=== PATIENT | female | born 1985 | race Caucasian/White ===

== ENCOUNTER 2017-03-20 14:43 | Inpatient (IN) ==
--- NOTE | 2017-03-20 12:32 | OB/GYN Progress Note ---
Date of Encounter: 03/20/17 Time of Encounter: 12:23 - Assessment and Plan (1) Right flank pain Current Visit: Yes Status: Acute Patient has had right flank pain x 3 days. History of kidney stones Urinalysis UDS Retroperitoneal US complete to R/O Kidney stone Monitoring Pt reports pain is 8/10. Will treat pain with Dilaudid. IV fluid bolus. Zofran for nausea. (2) 28 weeks gestation of Current Visit: Yes Status: Acute Patient is 28w3d Subjective - Subjective Principal diagnosis: Right Flank Pain Interval history: Patient is a 31 year old female at 28w3d presents to L&D for right flank pain. She states that this has been ongoing for the past three days. States that it is sharp and constant. Reports that it radiates to the the front. States that she has been nauseated and vomiting. States she has tried tylenol with no relief of her pain. Patient denies any contractions, loss of fluid, or vaginal bleeding. States that she had had some thick clear vaginal discharge. Reports good movement. Denies complications with the . She is a patient of Dr. Guerreros. Patient states she had a history of kidney stones and that this feels just like the last time she had a stone. Feels like she has to urinate but only a small amount will come out. No fevers. She does complain of chills at this time. Antepartum ROS: new complaints (Right flank pain), movement normal, no loss of fluid, no vaginal bleeding, no contractions Objective - Vital Signs Vital Signs: Intake and Output 03/19/17 03/20/17 03/20/17 23:59 07:59 15:59 Other: Weight 69.9 kg Patient Weight 03/20/17 23:59 Weight 69.9 kg - Exam FHR: auscultation normal, category 1 FHR comments: FHT reassuring for GA Auscultation: bilateral: normal Abdomen: Present: normal appearance, soft, gravid Uterus: Present: normal. Absent: tenderness Comments: Positive for CVA tenderness on the right
[2017-03-20 12:42] LABS: Bilirubin,Urine Negative (Negative); Blood,Urine Moderate (Negative); Color,Urine Yellow (Yellow); Glucose,Urine (UA) Normal (Normal); Ketones,Urine Negative (Negative); Leukocyte Esterase,Urine Small (Negative); Nitrite,Urine Negative (Negative); PH,Urine 6.5 pH Units (5.0-8.0); Protein,Urine 30 mg/dL (Neg-Trace); Specific Gravity,Urine 1.027 (1.010-1.025); Urobilinogen,Urine Normal (Normal)
[2017-03-20 12:44] LABS: Bacteria,Urine Moderate per hpf (None-Few); Hyaline Casts,Urine None Seen per lpf (None-Few); RBC,Urine 15-30 per hpf (0-3); Squamous Epithelial Cell,Urine Moderate per lpf (None-Few); WBC,Urine 30-50 per hpf (0-3)
[2017-03-20 12:46] LABS: Clarity,Urine Slightly Hazy (Clear)
[2017-03-20 12:52] LABS: Amphetamine Screen,Urine Negative ng/mL (Cutoff=1000); Barbiturate Screen,Urine Negative ng/mL (Cutoff=200); Benzodiazepines Screen,Urine Negative ng/mL (Cutoff=200); Cannabinoid Screen,Urine Negative ng/mL (Cutoff = 50); Cocaine Screen,Urine Negative ng/mL (Cutoff= 300); Opiate Screen,Urine Negative ng/mL (Cutoff=300); Phencyclidine Screen,Urine Negative ng/mL (Cutoff=25)
[2017-03-20 14:19] LABS: Basophils % 0.2 %; Eosinophils % 0.4 %; Hematocrit 34.1 % (35.3-44.9); Hemoglobin 10.9 g/dL (11.5-15.4); Immature Granulocytes % 0.5 % (0-4); Lymphocytes # 1.3 K/mcL (0.6-4.6); Lymphocytes % 11.2 %; Mean Corpuscular Hemoglobin 29.9 pg (28.0-33.3); Mean Corpuscular Volume 93.4 fL (83.0-100.0); Mean Platelet Volume 10.8 fL (9.4-12.4); Monocytes # 0.5 K/mcL (0.0-1.3); Monocytes % 4.6 %; Neutrophils # 9.4 K/mcL (1.6-8.9); Platelet Count 351 K/mcL (140-400); Red Blood Count 3.65 M/mcL (3.82-4.97); Red Cell Distribution Width 13.4 % (11.5-14.5); Segmented Neutrophils % 83.1 %
[2017-03-20 14:28] LABS: BUN/Creatinine Ratio 9 (6-26); Blood Urea Nitrogen 6 mg/dL (7-20); Calcium 8.8 mg/dL (8.6-10.8); Carbon Dioxide 23 mEq/L (19-29); Chloride 105 mEq/L (98-109); Glucose 76 mg/dL (70-99); Osmolality,Calculated 280 (280-300); Potassium 3.6 mEq/L (3.5-4.5); Sodium 137 mEq/L (136-145); eGFR For African Americans > 60 (> 60); eGFR For Non-African Americans > 60 (> 60)
[~2017-03-20 14:43] MED LIST: *HR* HYDROmorphone 2 MG/ML SYRINGE IVP ONE; Ondansetron 4 MG/2 ML VIAL IVP PRN
[2017-03-20] MEDS: Ringers Solution, Lactated 1,000 ML IVC ONE ×2 (14:43→17:05)
[2017-03-20] MEDS ORDERED: Acetaminophen 325 MG TABLET PO PRN ×2 (16:22→17:52)
[2017-03-20] MEDS ORDERED: Famotidine 20 MG/2 ML VIAL IVP SCH (16:24)
[2017-03-20] MEDS ORDERED: Ringers Solution, Lactated 1,000 ML ONE (17:02)
[2017-03-20] MEDS ORDERED: Ringers Solution, Lactated 1,000 ML IVC SCH (17:52)
[2017-03-20] MEDS: *HR* HYDROmorphone 2 MG/ML SYRINGE IVP PRN ×2 (18:12→21:55)
[2017-03-20] MEDS: Famotidine 20 MG/2 ML VIAL IVP SCH (18:18)
[2017-03-20] MEDS: Ondansetron 4 MG/2 ML VIAL IVP PRN (18:19)
[2017-03-20] MEDS ORDERED: *HR* OxyCODONE/APAP 5/325 TABLET PO PRN (23:33)
[2017-03-21] MEDS: Ondansetron 4 MG/2 ML VIAL IVP PRN ×3 (00:29→20:00)
[2017-03-21] MEDS ORDERED: *HR* HYDROmorphone 2 MG/ML SYRINGE IVP PRN (01:53)
[2017-03-21] MEDS: *HR* HYDROmorphone 2 MG/ML SYRINGE IVP PRN ×9 (02:10→22:04)
--- NOTE | 2017-03-21 02:11 | OB/GYN History & Physical ---
Date of Encounter: 03/21/17 Time of Encounter: 02:05 Assessment and Plan (1) Right flank pain Current visit: Yes Status: Acute Admit for observation due to possible kidney stone. FLomax PO. IV fluid bolus followed by 125ml/hr. Dilaudid for pain US shows moderate right hydronephrosis. POC discussed with Dr. Ruano (2) 28 weeks gestation of Current visit: Yes Status: Acute History of Present Illness Chief complaint: flank pain HPI: Patient is a 31 year old female at 28w3d presents to L&D for right flank pain. She states that this has been ongoing for the past three days. States that it is sharp and constant. Reports that it radiates to the the front. States that she has been nauseated and vomiting. States she has tried tylenol with no relief of her pain. Patient denies any contractions, loss of fluid, or vaginal bleeding. States that she had had some thick clear vaginal discharge. Reports good movement. Denies complications with the . She is a patient of Dr. Tejeda. Patient states she had a history of kidney stones and that this feels just like the last time she had a stone. Feels like she has to urinate but only a small amount will come out. No fevers. She does complain of chills at this time. Past Med Surg Social Fam HX - Past Medical History Medical history: kidney stones, migraine, other Psychiatric history: no psych history - Past Surgical History Surgical History: other - Social History Smoking Status: Never smoker Smokeless Tobacco Status: No Alcohol use: none Drug use: none - Family History Mother Living Status: Still Living Hx Family Cardiac Disorders: No Hx Family Respiratory Disorders: No Hx Family Cancer: No Hx Family GI Disorders: No Hx Family Endocrine Disorder: Yes (Graves disease) Hx Family Neuromuscular Disorders: No Hx Family Neurologic Disorders: No Hx Family HEENT Disorders: No Hx Family Autoimmune Disorders: No Obstetrical History - Pregnancies : 5 Para: 2 Term: 1 : 1 Ab's: 2 Livin Medications and Allergies Vit/FA 1 each PO DAILY 01/23/15 [History] Tylenol 500 mg PO PRN PRN 03/20/17 [History] Unisom 03/20/17 [History] 3 Allergy/AdvReac Type Severity Reaction Status Date / Time No Known Allergies Allergy Verified 01/23/15 11:51 Review of System OB All systems PM: reviewed and no additional remarkable complaints except as stated Exam - Vital Signs Vital signs: Initial Vital Signs Pulse Resp BP 86 16 106/64 03/20/17 17:45 03/20/17 17:45 03/20/17 17:45 - Constitutional Constitutional: well developed, well nourished, severe distress - HEENT HEENT: Mucus Membranes Moist - Lungs Respiratory exam: CTAB - Cardiovascular Cardiovascular exam: RRR - Abdomen Abdomen: Present: gravid, non tender - Extremities Extremities exam: normal inspection - Vulva Vulva: bilateral: normal - Comments Comments: +CVAT Results Result Diagrams: 03/20/17 14:04 03/20/17 14:04 Abnormal lab results WBC 11.3 K/mcL (4.3-11.1) H 03/20/17 14:04 RBC 3.65 M/mcL (3.82-4.97) L 03/20/17 14:04 Hgb 10.9 g/dL (11.5-15.4) L 03/20/17 14:04 Hct 34.1 % (35.3-44.9) L 03/20/17 14:04 Neutrophils # 9.4 K/mcL (1.6-8.9) H 03/20/17 14:04 BUN 6 mg/dL (7-20) L 03/20/17 14:04 Ur Specific [place] 1.027 (1.010-1.025) H 03/20/17 12:21 Urine Protein 30 mg/dL (Neg-Trace) H 03/20/17 12:21 Urine Blood Moderate (Negative) H 03/20/17 12:21 Ur Leukocyte Esterase Small (Negative) H 03/20/17 12:21 Urine Microscopic RBC 15-30 per hpf (0-3) H 03/20/17 12:21 Urine Microscopic WBC 30-50 per hpf (0-3) H 03/20/17 12:21 Ur Squamous Epith Cells Moderate per lpf (None-Few) H 03/20/17 12:21 Urine Bacteria Moderate per hpf (None-Few) H 03/20/17 12:21 Ur Culture Indicated? YES (NO) A 03/20/17 12:21 All other labs normal. - VTE Reasons for not Prescribing Prophylaxis: Treatment not Indicated - Low risk for VTE
[2017-03-21] MEDS: Famotidine 20 MG/2 ML VIAL IVP SCH ×2 (06:48→17:13)
--- NOTE | 2017-03-21 08:48 | OB/GYN Progress Note ---
Date of Encounter: 03/21/17 Time of Encounter: 08:43 - Assessment and Plan (1) Right flank pain Current Visit: Yes Status: Acute Patient has had right flank pain x 4 days. History of kidney stones Urology has been consulted Possible transfer to [facility] pending patient decision. Urology stated they are happy to see the patient but if an intervention is necessary she may need to be transferred due to the patients gestational age. Continue fluids Dilaudid for pain management (2) 28 weeks gestation of Current Visit: Yes Status: Acute Patient is 28w4d Subjective - Subjective Principal diagnosis: Right Flank Pain Interval history: Patient states that she is still having pain. Patient was tearful in the room. I called and spoke the Dr Pelayo the urologist population geneticist and due to the patients gestational age he stated that he would not be able to take the patient to the operating room unless it were an emergency. He stated that we could do a KUB or a low dose CT scan but if an intervention was needed she would need to be transferred to a facility that could accommodate a 28 week gestational patient. We spoke with the patient about possibly going to [facility] and she stated that she was unsure if she wanted to go there due to a previous bad experience for a previous kidney stone. We explained that the other option was waiting until this afternoon for Dr Pelayo to see her and then decide if she would need to be transferred. The patient was very concerned about going to [facility] and stated that she wanted to speak to her before she made a decision. I examined this patient and my medical decision-making was reviewed with the Resident Physician. I agree with the documented findings, disposition and treatment plan as described except to the extent set forth below. LAURO Acevedo Antepartum ROS: no new complaints, no loss of fluid, no vaginal bleeding, no movement normal, no contractions Objective - Vital Signs Vital Signs: Vital Signs Temp Pulse Resp BP Pulse Ox 03/21/17 04:50 97.5 F L 74 16 109/63 97 03/21/17 00:15 97.4 F L 76 14 102/64 98 03/20/17 20:16 97.7 F 74 16 97/55 98 03/20/17 17:45 86 16 106/64 Intake and Output 03/20/17 03/21/17 03/21/17 23:59 07:59 15:59 Intake Total 500 / 500 Output Total 200 / 200 700 / 700 Balance -200 / -200 -200 / -200 Intake: Oral 500 / 500 Output: Urine 200 / 200 700 / 700 Other: # Urine Diapers 1 Weight 69.9 kg 71.214 kg Patient Weight 03/21/17 23:59 Weight 71.214 kg - Exam Auscultation: bilateral: normal Abdomen: Present: normal appearance, soft, gravid Comments: Patient has right CVA tenderness - Labs Labs: Abnormal lab results WBC 11.3 K/mcL (4.3-11.1) H 03/20/17 14:04 RBC 3.65 M/mcL (3.82-4.97) L 03/20/17 14:04 Hgb 10.9 g/dL (11.5-15.4) L 03/20/17 14:04 Hct 34.1 % (35.3-44.9) L 03/20/17 14:04 Neutrophils # 9.4 K/mcL (1.6-8.9) H 03/20/17 14:04 BUN 6 mg/dL (7-20) L 03/20/17 14:04 Ur Specific [place] 1.027 (1.010-1.025) H 03/20/17 12:21 Urine Protein 30 mg/dL (Neg-Trace) H 03/20/17 12:21 Urine Blood Moderate (Negative) H 03/20/17 12:21 Ur Leukocyte Esterase Small (Negative) H 03/20/17 12:21 Urine Microscopic RBC 15-30 per hpf (0-3) H 03/20/17 12:21 Urine Microscopic WBC 30-50 per hpf (0-3) H 03/20/17 12:21 Ur Squamous Epith Cells Moderate per lpf (None-Few) H 03/20/17 12:21 Urine Bacteria Moderate per hpf (None-Few) H 03/20/17 12:21 Ur Culture Indicated? YES (NO) A 03/20/17 12:21
[2017-03-21] MEDS: Prenatal Vit/FA 1 EACH TABLET PO SCH (09:32)
[2017-03-21] MEDS ORDERED: ceFAZolin 1,000 MG in D5% in Water (Mini-Bag+) 100 ML IVPB SCH (10:00)
[2017-03-21] MEDS: ceFAZolin 1,000 MG in Water for inj. (sterile) 10 ML IVP SCH ×2 (10:23→17:07)
[2017-03-21] MEDS: Ringers Solution, Lactated 1,000 ML IVC SCH ×3 (10:42→22:04)
[2017-03-21] MEDS ORDERED: Ringers Solution, Lactated 500 ML IVC ONE (12:25)
--- NOTE | 2017-03-21 16:18 | Urology - Consult Note ---
Date of Encounter: 03/21/17 Time of Encounter: 16:14 - Assessment and Plan (1) Hydronephrosis, right Current Visit: Yes Status: Acute Assessment and plan: Patient's hydronephrosis is likely causing her discomfort. At this point I do not see any urgent need for stenting or nephrostomy tube placement. We will reassess tomorrow. If patient requires intervention she would likely need to be transferred to a tertiary care center secondary to lack of patient's inability to undergo general anesthesia because of her 28 weeks gestation. Urology CN:HPI Consult date: 03/21/17 Reason for consult Urology: Hydronephrosis Requesting physician: Ivonne Baldwin History of present illness: Jerardo is a 31-year-old female with a history of 28 weeks . patient with right flank pain. pain is 10/10. sharp in nature. mri shows right hydro with uterine compression of ureter. Past Med Surg Social Fam HX - Past Medical History Medical history: kidney stones, migraine, other Psychiatric history: no psych history - Past Surgical History Surgical History: other - Social History Smoking Status: Never smoker Smokeless Tobacco Status: No Alcohol use: none Drug use: none - Family History Mother Living Status: Still Living Hx Family Cardiac Disorders: No Hx Family Respiratory Disorders: No Hx Family Cancer: No Hx Family GI Disorders: No Hx Family Endocrine Disorder: Yes (Graves disease) Hx Family Neuromuscular Disorders: No Hx Family Neurologic Disorders: No Hx Family HEENT Disorders: No Hx Family Autoimmune Disorders: No Medications and Allergies Vit/FA 1 each PO DAILY 01/23/15 [History] Tylenol 500 mg PO PRN PRN 03/20/17 [History] Unisom 03/20/17 [History] 3 Allergy/AdvReac Type Severity Reaction Status Date / Time No Known Allergies Allergy Verified 01/23/15 11:51 Review of Systems - Constitutional no chills - EENT Nose, mouth and throat: no dizziness - Cardiovascular no chest pain - Respiratory no cough - Gastrointestinal no abdominal pain - Musculoskeletal back pain - Integumentary no erythema - Neurological no confusion - Psychiatric no anxiety Exam Initial Vital Signs Pulse Resp BP 86 16 106/64 03/20/17 17:45 03/20/17 17:45 03/20/17 17:45 - General physical appearance Present: well developed - Eyes Present: PERRL - ENT Present: normal nares - Neck Present: no masses - Respiratory Present: normal respiratory effort - Cardiovascular Cardiovascular exam IM: RRR - Abdomen Abdomen: Present: soft Urology Results - Labs 03/20/17 14:04 03/20/17 14:04 Abnormal lab results WBC 11.3 K/mcL (4.3-11.1) H 03/20/17 14:04 RBC 3.65 M/mcL (3.82-4.97) L 03/20/17 14:04 Hgb 10.9 g/dL (11.5-15.4) L 03/20/17 14:04 Hct 34.1 % (35.3-44.9) L 03/20/17 14:04 Neutrophils # 9.4 K/mcL (1.6-8.9) H 03/20/17 14:04 BUN 6 mg/dL (7-20) L 03/20/17 14:04 Ur Specific [place] 1.027 (1.010-1.025) H 03/20/17 12:21 Urine Protein 30 mg/dL (Neg-Trace) H 03/20/17 12:21 Urine Blood Moderate (Negative) H 03/20/17 12:21 Ur Leukocyte Esterase Small (Negative) H 03/20/17 12:21 Urine Microscopic RBC 15-30 per hpf (0-3) H 03/20/17 12:21 Urine Microscopic WBC 30-50 per hpf (0-3) H 03/20/17 12:21 Ur Squamous Epith Cells Moderate per lpf (None-Few) H 03/20/17 12:21 Urine Bacteria Moderate per hpf (None-Few) H 03/20/17 12:21 Ur Culture Indicated? YES (NO) A 03/20/17 12:21 All other labs normal. - Imaging Additional studies: MRI reviewed Consult Discharge Plan - Plan Referrals: NONE,PCP [Primary Care Provider] -
[2017-03-21] MEDS: *HR* Promethazine 25 MG/ML VIAL IVP PRN (18:50)
[2017-03-21] MEDS ORDERED: Water for inj. (sterile) 10 ML IV ONE (21:49)
[2017-03-22] MEDS: *HR* HYDROmorphone 2 MG/ML SYRINGE IVP PRN ×5 (00:43→10:21)
[2017-03-22] MEDS: ceFAZolin 1,000 MG in Water for inj. (sterile) 10 ML IVP SCH ×2 (00:44→08:22)
[2017-03-22] MEDS: Ondansetron 4 MG/2 ML VIAL IVP PRN (00:45)
[2017-03-22] MEDS: Famotidine 20 MG/2 ML VIAL IVP SCH (04:20)
[2017-03-22] MEDS: Ringers Solution, Lactated 1,000 ML IVC SCH (04:23)
[2017-03-22] MEDS: *HR* Promethazine 25 MG/ML VIAL IVP PRN (06:38)
[2017-03-22 08:26] VITALS: BP 100/59
[2017-03-22] MEDS: Prenatal Vit/FA 1 EACH TABLET PO SCH (08:48)
--- NOTE | 2017-03-22 09:21 | Urology Progress Note ---
Date of Encounter: 03/22/17 Time of Encounter: 09:20 - Assessment and Plan (1) Hydronephrosis, right Current Visit: Yes Status: Acute Assessment and plan: recommend that patient be transferred to tertiary care center for possible intervention. Progress Note Narrative: Patient seen this am. still with 10/10 right flank pain. + tachycardia. Objective Initial Vital Signs Pulse Resp BP 86 16 106/64 03/20/17 17:45 03/20/17 17:45 03/20/17 17:45 - General physical appearance Present: well developed - Abdomen Present: soft - Labs 03/20/17 14:04 03/20/17 14:04 - VTE Reasons for not Prescribing Prophylaxis: Treatment not Indicated - Low risk for VTE Consult Discharge Plan - Plan Referrals: NONE,PCP [Primary Care Provider] -
--- NOTE | 2017-03-22 09:30 | Discharge Summary ---
Date of Encounter: 03/22/17 Time of Encounter: 09:45 - Discharge Diagnosis (1) 28 weeks gestation of Priority: Secondary Status: Acute (2) Hydronephrosis, right Priority: Primary Status: Acute Comments: Transfer to [facility] for uncontrolled Right flank pain per recommendation by Dr Pelayo , Urology. Dr Ar Christian accepts transfer. Patient has been taking 2mg Dilaudid IV every 2 hours. Pain controlled for 1.5 hours after dose. Has had LR running at 150ml/hr continuously. (3) Right flank pain Priority: Primary Status: Acute - Discharge Medications Allergies/Adverse Reactions: 3 Allergy/AdvReac Type Severity Reaction Status Date / Time No Known Allergies Allergy Verified 01/23/15 11:51 Data Procedures and tests throughout hospitalization: Laboratory Tests 03/20/17 03/20/17 03/20/17 12:21 12:21 14:04 WBC 11.3 H RBC 3.65 L Hgb 10.9 L Hct 34.1 L MCV 93.4 MCH 29.9 MCHC 32.0 RDW 13.4 Plt Count 351 MPV 10.8 Immature Gran % 0.5 Seg Neutrophils % 83.1 Lymphocytes % 11.2 Monocytes % 4.6 Eosinophils % 0.4 Basophils % 0.2 Neutrophils # 9.4 H Lymphocytes # 1.3 Monocytes # 0.5 Eosinophils # 0.0 Basophils # 0.0 Sodium Potassium Chloride Carbon Dioxide BUN Creatinine Est GFR ( Amer) Est GFR (Non-Af Amer) BUN/Creatinine Ratio Glucose Calculated Osmolality Calcium Urine Color Yellow Urine Clarity Slightly Hazy Urine pH 6.5 Ur Specific [place] 1.027 H Urine Protein 30 H Urine Glucose (UA) Normal Urine Ketones Negative Urine Blood Moderate H Urine Nitrite Negative Urine Bilirubin Negative Urine Urobilinogen Normal Ur Leukocyte Esterase Small H Urine Microscopic RBC 15-30 H Urine Microscopic WBC 30-50 H Ur Squamous Epith Cells Moderate H Urine Bacteria Moderate H Hyaline Casts None Seen Ur Culture Indicated? YES A Urine Opiates Screen Negative Ur Barbiturates Screen Negative Ur Phencyclidine Scrn Negative Ur Amphetamines Screen Negative U Benzodiazepines Scrn Negative Urine Cocaine Screen Negative U Marijuana (THC) Screen Negative 03/20/17 14:04 WBC RBC Hgb Hct MCV MCH MCHC RDW Plt Count MPV Immature Gran % Seg Neutrophils % Lymphocytes % Monocytes % Eosinophils % Basophils % Neutrophils # Lymphocytes # Monocytes # Eosinophils # Basophils # Sodium 137 Potassium 3.6 Chloride 105 Carbon Dioxide 23 BUN 6 L Creatinine 0.69 Est GFR ( Amer) > 60 Est GFR (Non-Af Amer) > 60 BUN/Creatinine Ratio 9 Glucose 76 Calculated Osmolality 280 Calcium 8.8 Urine Color Urine Clarity Urine pH Ur Specific [place] Urine Protein Urine Glucose (UA) Urine Ketones Urine Blood Urine Nitrite Urine Bilirubin Urine Urobilinogen Ur Leukocyte Esterase Urine Microscopic RBC Urine Microscopic WBC Ur Squamous Epith Cells Urine Bacteria Hyaline Casts Ur Culture Indicated? Urine Opiates Screen Ur Barbiturates Screen Ur Phencyclidine Scrn Ur Amphetamines Screen U Benzodiazepines Scrn Urine Cocaine Screen U Marijuana (THC) Screen - Impressions ITS Impressions Retroperitoneum Ultrasound 03/20/17 15:00 IMPRESSION: Moderate right hydronephrosis. D/ / Elgin Boggs MD / Elgin Boggs MD Interpreting Provider: Elgin Boggs MD Pelvis MRI 03/21/17 10:17 IMPRESSION: 1. Moderate right hydronephrosis. 2. 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 3. No evidence of intraluminal filling defect to suggest a stone. D/ / Julio Carrillo MD / Julio Carrillo MD Interpreting Provider: Julio Carrillo MD Date of admission: 03/21/17 09:19 Primary care physician: PCP NONE Consults: 03/21/17 07:58 Consult to Urology [CONS] Stat Consulting Provider: [facility] [place] Reason for Consult: kidney stone, 28 weeks , possible transfer if needed Call Completed: Yes Discharging clinician: April Best Anticipated date of discharge: 03/22/17 - Patient Status Disposition: Transfer Other Condition: Fair Functional capacity at discharge: independent ambulation Overall status at discharge: patient is not back to baseline - Discharge Instructions Follow Up With: NONE,PCP [Primary Care Provider] - Willie Rodriguez MD [Partnered Physician] - - Diet and Activity Activity: increase activity as tolerated Diet: regular diet Hospital Course [facility] Time Attestation: Total time spent providing and/or coordinating discharge services: Time Spent: Less than 30 minutes Exam - Constitutional Vitals: Temp Pulse Resp BP Pulse Ox 97.8 F 98 16 100/59 95 03/22/17 07:35 03/22/17 08:30 03/22/17 08:30 03/22/17 07:35 03/22/17 07:35 General appearance IM: cooperative (tearful. "anxious about transfer"), A&O X 3 , pleasant - Respiratory Respiratory exam: Present: CTAB - Cardiovascular Cardiovascular exam IM: Present: RRR, +S1, +S2 - GI/Abdominal GI/Abdominal exam IM: normal bowel sounds, soft, tenderness (right CVA tenderness states "feels like it could pop") - Rectal Rectal exam: deferred - Additional comments: FHTs 130's no contractions per NST or patient report. +FM. Denies vaginal discharge/bleeding/cramping - Extremities Exam Extremities exam IM: Present: normal capillary refill, normal inspection, radial pulses palpable and symmetrical - Neurological Exam Neurological exam: alert, oriented X3, reflexes normal - VTE Reasons for not Prescribing Prophylaxis: Treatment not Indicated - Low risk for VTE
== END 2017-03-22 10:28 | disposition other institution (70) | DRG 781 ==
LOC: 1NENULAB → 1NENUOBS 17:25
PROVIDERS: ADMIT Student in an Organized Health Care Education/Training Program; ATTEND Student in an Organized Health Care Education/Training Program

== ENCOUNTER 2017-05-03 22:43 | Inpatient (IN) ==
[2017-05-03 03:30] LABS: Bilirubin,Urine Negative (Negative); Blood,Urine Moderate (Negative); Clarity,Urine Cloudy (Clear); Color,Urine Yellow (Yellow); Glucose,Urine (UA) Normal (Normal); Ketones,Urine Negative (Negative); Leukocyte Esterase,Urine Large (Negative); Nitrite,Urine Positive (Negative); Protein,Urine 100 mg/dL (Neg-Trace); Specific Gravity,Urine 1.021 (1.010-1.025); Urobilinogen,Urine Normal (Normal)
[2017-05-03 03:33] LABS: Amphetamine Screen,Urine Negative ng/mL (Cutoff=1000); Bacteria,Urine Few per hpf (None-Few); Barbiturate Screen,Urine Negative ng/mL (Cutoff=200); Benzodiazepines Screen,Urine Negative ng/mL (Cutoff=200); Cannabinoid Screen,Urine Negative ng/mL (Cutoff = 50); Cocaine Screen,Urine Negative ng/mL (Cutoff= 300); Hyaline Casts,Urine Few per lpf (None-Few); Opiate Screen,Urine Positive ng/mL (Cutoff=300); Phencyclidine Screen,Urine Negative ng/mL (Cutoff=25); RBC,Urine 30-50 per hpf (0-3); Squamous Epithelial Cell,Urine Few per lpf (None-Few); WBC,Urine 50-100 per hpf (0-3)
[2017-05-03] MEDS: *HR* HYDROmorphone (PF) 1 MG/ML SYRINGE IVP PRN ×2 (03:36→08:05)
[2017-05-03 03:53] LABS: Basophils % 0.1 %; Eosinophils % 0.3 %; Hematocrit 32.9 % (35.3-44.9); Hemoglobin 10.4 g/dL (11.5-15.4); Immature Granulocytes % 0.8 % (0-4); Lymphocytes # 1.9 K/mcL (0.6-4.6); Lymphocytes % 13.8 %; Mean Corpuscular HGB Conc 31.6 g/dL (31.6-35.5); Mean Corpuscular Hemoglobin 27.7 pg (28.0-33.3); Mean Corpuscular Volume 87.5 fL (83.0-100.0); Mean Platelet Volume 11.1 fL (9.4-12.4); Monocytes # 0.7 K/mcL (0.0-1.3); Monocytes % 5.1 %; Neutrophils # 11.2 K/mcL (1.6-8.9); Platelet Count 374 K/mcL (140-400); Red Blood Count 3.76 M/mcL (3.82-4.97); Red Cell Distribution Width 14.4 % (11.5-14.5); Segmented Neutrophils % 79.9 %
--- NOTE | 2017-05-03 03:56 | OB/GYN History & Physical ---
Date of Encounter: 05/03/17 Time of Encounter: 03:50 Assessment and Plan (1) 34 weeks gestation of Current visit: Yes Status: Acute (2) Pyelonephritis affecting in third trimester Current visit: Yes Status: Acute UA from 04/24 indicates UTI, pt was treated in office with single dose of rocephin on 05/02. Discussed with Dr. 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 Discussed with Dr. Melo, increase dilaudid to 2mg, start ATB, and will consult urology after US results. History of Present Illness Chief complaint: Left flank pain HPI: Ms. Gant is a 32 year old female presents to triage with complaints of severe left flank pain which started this afternoon and early evening, unrelieved by po narcotics. Pt has been seen for kidney stones this with stent and subsequent nephrostomy tube placement on the right side at [facility]. Patient was seen in office and diagnosed with UTI earlier this week changed from by mouth antibiotics and switch to one dose of IM Rocephin, which was given on . Reports good movement, denies vaginal bleeding or leaking of fluid. Past Med Surg Social Fam HX - Past Medical History Medical history: kidney stones, migraine, other Psychiatric history: no psych history - Past Surgical History Surgical History: ureteral stent - Social History Smoking Status: Never smoker Smokeless Tobacco Status: No Alcohol use: none Drug use: none - Family History Mother Adopted: No Living Status: Still Living Hx Family Cardiac Disorders: No Hx Family Respiratory Disorders: No Hx Family Cancer: No Hx Family GI Disorders: No Hx Family Endocrine Disorder: Yes (Graves disease) Hx Family Neuromuscular Disorders: No Hx Family Neurologic Disorders: No Hx Family HEENT Disorders: No Hx Family Autoimmune Disorders: No Obstetrical History - Pregnancies : 5 Para: 2 Term: 1 : 1 Ab's: 2 Livin Medications and Allergies 3 Allergy/AdvReac Type Severity Reaction Status Date / Time No Known Allergies Allergy Verified 01/23/15 11:51 Exam - Constitutional Constitutional: well developed, well nourished, mild distress - Neck Neck exam: full ROM - Lungs Respiratory exam: CTAB - Cardiovascular Cardiovascular exam: RRR - Abdomen Abdomen: Present: bowel sounds normal, gravid, non tender - Extremities Extremities exam: normal capillary refill, normal inspection - Comments Comments: Pt in severe pain on exam, Nephrostomy tube in place on right side, +CVA tenderness on left side, cervix with closed inner os per RN exam. Results Result Diagrams: 05/03/17 03:44 05/03/17 03:44 Abnormal lab results Urine Clarity Cloudy (Clear) A 05/03/17 03:20 Urine Protein 100 mg/dL (Neg-Trace) H 05/03/17 03:20 Urine Blood Moderate (Negative) H 05/03/17 03:20 Urine Nitrite Positive (Negative) A 05/03/17 03:20 Ur Leukocyte Esterase Large (Negative) H 05/03/17 03:20 Urine Microscopic RBC 30-50 per hpf (0-3) H 05/03/17 03:20 Urine Microscopic WBC 50-100 per hpf (0-3) H 05/03/17 03:20 Ur Culture Indicated? YES (NO) A 05/03/17 03:20 Urine Opiates Screen Positive ng/mL ([id number]) H 05/03/17 03:20 All other labs normal. - VTE Reasons for not Prescribing Prophylaxis: Treatment not Indicated - Low risk for VTE
[2017-05-03 04:22] LABS: Alanine Aminotransferase 17 Units/L (7-52); Albumin 3.5 g/dL (3.5-5.7); Albumin/Globulin Ratio 0.9 (1.1-2.2); Alkaline Phosphatase 212 Units/L (34-104); Aspartate Amino Transferase 25 Units/L (13-39); BUN/Creatinine Ratio 14 (6-26); Bilirubin,Total 0.4 mg/dL (0.3-1.0); Blood Urea Nitrogen 12 mg/dL (6-20); Carbon Dioxide 20 mEq/L (23-29); Chloride 102 mEq/L (98-107); Globulin 3.7 g/dL (2.4-3.5); Glucose 112 mg/dL (70-105); Osmolality,Calculated 279 (280-300); Potassium 3.2 mEq/L (3.5-5.1); Sodium 134 mEq/L (136-145); Total Protein 7.2 g/dL (6.4-8.9); eGFR For African Americans > 60 (> 60); eGFR For Non-African Americans > 60 (> 60)
[2017-05-03] MEDS: cefTRIAXone 2,000 MG in Water for inj. (sterile) 20 ML 20 ML IVPB SCH (05:25)
[2017-05-03] MEDS: Ondansetron 4 MG/2 ML VIAL IVP PRN ×2 (05:38→14:04)
[2017-05-03] MEDS: Ringers Solution, Lactated 1,000 ML IVC SCH ×3 (08:16→18:32)
[2017-05-03] MEDS: *HR* OxyCODONE Immed Rel 5 MG TABLET PO PRN ×2 (09:37→20:23)
--- NOTE | 2017-05-03 09:56 | Event Note ---
Date of Encounter: 05/03/17 Time of Encounter: 09:45 The pt has returned from US. She is uncomfortable and is requesting pain medication. No emesis. Reports point tenderness to the left flank. Fetus active. Not appreciating discomfort with contractions. heart tones 130s baseline, CAT 1. Contractions 4-6 minutes. No CVA tenderness on the right. Point tenderness on the left. Abdomen is gravid, soft and nontender. Extremities are warm, nontender without pedal edema. Review of ultrasound images in PACS reveal no hydronephrosis bilaterally. There is minimal fluid in the bladder. Review of previous urine culture showed 2 bacteria that had different sensitivities. Currently patient is on only one of those antibiotics that would cover for her previous infection. This would be Rocephin. Vancomycin will be added for second coverage while urine culture is pending. Patient advised the plan of care. She will be given oral pain medication as prescribed. She also is known to have a low potassium. Since she has minimal urine output since arrival from her bladder, although nephrostomy tube has had adequate urine output, will give 500 L bolus and then start her with lactated Ringer's with potassium K rider. Patient aware of plan of care and ultrasound findings
[2017-05-03] MEDS: *HR* FentaNYL (PF) 100 MCG/2 ML VIAL IVP PRN ×9 (10:45→23:33)
[2017-05-03] MEDS: Vancomycin 750 MG in D5% in Water 250 ML IVPB SCH ×2 (11:14→23:35)
--- NOTE | 2017-05-03 12:25 | Urology - Consult Note ---
Date of Encounter: 05/03/17 Time of Encounter: 12:23 - Assessment and Plan (1) Pyelonephritis affecting in third trimester Current Visit: Yes Status: Acute Assessment and plan: 32-year-old woman with a urinary tract infection, elevated white blood cell count, and left flank pain. This is concerning for possible left pyelonephritis. Her renal ultrasound doesn't show any evidence of hydronephrosis. I will order a MR urogram for further clarification. Without any hydronephrosis, I do not think that she requires any intervention at this time. The MRI should provide better clarity on this. If there is concern for a stone or obstruction, we may need to transfer her to a tertiary center with intensive care support in case intervention is required. We will continue the IV antibiotic. I called MRI to discuss scheduling of the study and they will coordinate. (2) Left flank pain Current Visit: No Status: Acute Urology CN:HPI Consult date: 05/03/17 Reason for consult Urology: Other (Left flank pain, UTI) Requesting physician: Kylie Vidal History of present illness: 32 year old woman presents with left flank pain. She is at 34 weeks gestation. She previously had a right nephrostomy tube placed for right flank pain. Her left flank pain has been severe. It is located in the left flank and does not radiate to the groin. She had a renal and bladder ultrasound which showed no evidence of sided hydronephrosis. The bladder was empty. She has not urinated much. A Gonzalez catheter was placed. A scant amount of urine returned. In the last hour she has produced approximately 30 mL. She was also diagnosed recently with a urinary tract infection. She had positive cultures for Enterobacter and enterococcus. She is currently on ampicillin and vancomycin. Her pain is improving with IV fentanyl. She has had previous issues with left flank pain and her previous in 2016. An IVP was performed which showed appropriate drainage down her left ureter. I do not have any records of any CT scans done between pregnancies which have shown any stones. It is unclear if she actually has nephrolithiasis. Her recent ultrasound showed no evidence of nephrolithiasis. Past Med Surg Social Fam HX - Past Medical History Medical history: kidney stones, migraine, other Psychiatric history: no psych history - Past Surgical History Surgical History: ureteral stent - Social History Smoking Status: Never smoker Smokeless Tobacco Status: No Alcohol use: none Drug use: none - Family History Mother Adopted: No Living Status: Still Living Hx Family Cardiac Disorders: No Hx Family Respiratory Disorders: No Hx Family Cancer: No Hx Family GI Disorders: No Hx Family Endocrine Disorder: Yes (Graves disease) Hx Family Neuromuscular Disorders: No Hx Family Neurologic Disorders: No Hx Family HEENT Disorders: No Hx Family Autoimmune Disorders: No Medications and Allergies 3 Allergy/AdvReac Type Severity Reaction Status Date / Time No Known Allergies Allergy Verified 01/23/15 11:51 Review of Systems - Constitutional no chills, no fever(s) - EENT Nose, mouth and throat: no dizziness - Cardiovascular no chest pain - Respiratory no dyspnea - Gastrointestinal no nausea, no vomiting - Genitourinary Genitourinary: flank pain, no hematuria - Musculoskeletal no back pain - Integumentary no erythema, no rash - Neurological no weakness - Psychiatric no suicidal ideation - Hematologic/Lymphatic no easy bleeding - Allergic/Immunologic no wheezing Exam - General physical appearance Present: well developed, well nourished, no distress - Eyes Absent: icteric - ENT Present: normal nares - Neck Present: trachea midline - Respiratory Present: normal respiratory effort - Cardiovascular Cardiovascular exam IM: RRR - Abdomen Abdomen: Present: soft (Left flank pain is present. Does not radiate anywhere. Right nephrostomy tube is in good position with clear urine. Gonzalez catheter with clear urine.) Urology Results - Labs 05/03/17 03:44 05/03/17 03:44 Abnormal lab results WBC 14.0 K/mcL (4.3-11.1) H 05/03/17 03:44 RBC 3.76 M/mcL (3.82-4.97) L 05/03/17 03:44 Hgb 10.4 g/dL (11.5-15.4) L 05/03/17 03:44 Hct 32.9 % (35.3-44.9) L 05/03/17 03:44 MCH 27.7 pg (28.0-33.3) L 05/03/17 03:44 Neutrophils # 11.2 K/mcL (1.6-8.9) H 05/03/17 03:44 Sodium 134 mEq/L (136-145) L 05/03/17 03:44 Potassium 3.2 mEq/L (3.5-5.1) L 05/03/17 03:44 Carbon Dioxide 20 mEq/L (23-29) L 05/03/17 03:44 Glucose 112 mg/dL (70-105) H 05/03/17 03:44 Calculated Osmolality 279 (280-300) L 05/03/17 03:44 Alkaline Phosphatase 212 Units/L (34-104) H 05/03/17 03:44 Globulin 3.7 g/dL (2.4-3.5) H 05/03/17 03:44 Albumin/Globulin Ratio 0.9 (1.1-2.2) L 05/03/17 03:44 Urine Clarity Cloudy (Clear) A 05/03/17 03:20 Urine Protein 100 mg/dL (Neg-Trace) H 05/03/17 03:20 Urine Blood Moderate (Negative) H 05/03/17 03:20 Urine Nitrite Positive (Negative) A 05/03/17 03:20 Ur Leukocyte Esterase Large (Negative) H 05/03/17 03:20 Urine Microscopic RBC 30-50 per hpf (0-3) H 05/03/17 03:20 Urine Microscopic WBC 50-100 per hpf (0-3) H 05/03/17 03:20 Ur Culture Indicated? YES (NO) A 05/03/17 03:20 Urine Opiates Screen Positive ng/mL (Ypqgzv=558) H 05/03/17 03:20 Diabetes panel 05/03/17 Range/Units 03:44 Sodium 134 L (136-145) mEq/L Potassium 3.2 L (3.5-5.1) mEq/L Chloride 102 (98-107) mEq/L Carbon Dioxide 20 L (23-29) mEq/L BUN 12 (6-20) mg/dL Creatinine 0.87 (0.60-1.20) mg/dL Glucose 112 H (70-105) mg/dL Calcium 9.0 (8.6-10.3) mg/dL AST 25 (13-39) Units/L ALT 17 (7-52) Units/L Alkaline Phosphatase 212 H (34-104) Units/L Albumin 3.5 (3.5-5.7) g/dL Calcium panel 05/03/17 Range/Units 03:44 Calcium 9.0 (8.6-10.3) mg/dL Albumin 3.5 (3.5-5.7) g/dL Pituitary panel 05/03/17 Range/Units 03:44 Sodium 134 L (136-145) mEq/L Potassium 3.2 L (3.5-5.1) mEq/L Chloride 102 (98-107) mEq/L Carbon Dioxide 20 L (23-29) mEq/L BUN 12 (6-20) mg/dL Creatinine 0.87 (0.60-1.20) mg/dL Glucose 112 H (70-105) mg/dL Calcium 9.0 (8.6-10.3) mg/dL Adrenal panel 05/03/17 Range/Units 03:44 Sodium 134 L (136-145) mEq/L Potassium 3.2 L (3.5-5.1) mEq/L Chloride 102 (98-107) mEq/L Carbon Dioxide 20 L (23-29) mEq/L BUN 12 (6-20) mg/dL Creatinine 0.87 (0.60-1.20) mg/dL Glucose 112 H (70-105) mg/dL Calcium 9.0 (8.6-10.3) mg/dL Total Bilirubin 0.4 (0.3-1.0) mg/dL AST 25 (13-39) Units/L ALT 17 (7-52) Units/L Alkaline Phosphatase 212 H (34-104) Units/L Albumin 3.5 (3.5-5.7) g/dL All other labs normal. - Imaging US - abdomen: report reviewed, image reviewed US - pelvic: report reviewed, image reviewed Consult Discharge Plan - Plan Referrals: NONE,PCP [Primary Care Provider] -
[~2017-05-03 22:43] MED LIST changes: +*HR* HYDROmorphone (PF) 1 MG/ML SYRINGE IVP ONE; -*HR* HYDROmorphone 2 MG/ML SYRINGE IVP ONE; +0.9 % Sodium Chloride 500 ML IVC ONE; +Ampicillin 2 GM in 0.9 % Sodium Chloride Mini Bag 100 ML IVPB SCH; -Ondansetron 4 MG/2 ML VIAL IVP PRN; +Ringers Solution, Lactated 1,000 ML ONE; +Vancomycin (wt based) 1,000 MG VIAL IVPB SCH
[2017-05-04] MEDS: *HR* FentaNYL (PF) 100 MCG/2 ML VIAL IVP PRN ×5 (00:54→09:35)
[2017-05-04] MEDS: cefTRIAXone 2,000 MG in Water for inj. (sterile) 20 ML 20 ML IVPB SCH (05:13)
[2017-05-04 07:06] LABS: Alanine Aminotransferase 13 Units/L (7-52); Albumin 2.7 g/dL (3.5-5.7); Albumin/Globulin Ratio 0.9 (1.1-2.2); Alkaline Phosphatase 175 Units/L (34-104); Aspartate Amino Transferase 17 Units/L (13-39); BUN/Creatinine Ratio 9 (6-26); Bilirubin,Total 0.6 mg/dL (0.3-1.0); Blood Urea Nitrogen 6 mg/dL (6-20); Calcium 8.2 mg/dL (8.6-10.3); Carbon Dioxide 22 mEq/L (23-29); Chloride 107 mEq/L (98-107); Glucose 89 mg/dL (70-105); Osmolality,Calculated 279 (280-300); Potassium 3.8 mEq/L (3.5-5.1); Sodium 136 mEq/L (136-145); Total Protein 5.7 g/dL (6.4-8.9); eGFR For African Americans > 60 (> 60); eGFR For Non-African Americans > 60 (> 60)
[2017-05-04] MEDS: *HR* OxyCODONE Immed Rel 5 MG TABLET PO PRN ×4 (08:34→22:42)
--- NOTE | 2017-05-04 09:29 | OB/GYN Progress Note ---
Date of Encounter: 05/04/17 Time of Encounter: 09:30 - Assessment and Plan (1) 34 weeks gestation of Current Visit: Yes Status: Acute (2) Pyelonephritis affecting in third trimester Current Visit: Yes Status: Acute Subjective - Subjective Interval history: Patient having moderate amount of pain this morning requesting IV fentanyl again. Did discuss with her trying to get her off this medication on to oral pain medication because of potential side effects at this drug. Patient is having a little bit of nausea is eating that minimal amounts. She is currently on the IV antibiotics she did have an MRI yesterday this case was discussed with the urologist's and we are waiting for the rounding this morning. Patient' s producing large amounts of urine in her nephrostomy bag and then the catheter so we know both sides are functioning well at this time. Objective - Vital Signs Vital Signs: Vital Signs Temp Pulse Pulse Resp BP Pulse Ox 05/04/17 00:09 104 05/04/17 00:03 97.8 F 106 16 95/61 98 Intake and Output 05/03/17 05/04/17 05/04/17 23:59 07:59 15:59 Intake Total 1000 / 1000 270 / 270 Output Total 395 / 395 1850 / 1850 Balance 605 / 605 -1580 / -1580 Intake: IV Fluids 1000 / 1000 270 / 270 Lactated Ringers 1,000 ML @ 125 1000 / 1000 mls/hr IVC .Q8H [facility] Rx#: [id number] Vancocin 750 MG In Dextrose 5% 250 / 250 250 ML @ 250 mls/hr IVPB Q12H [facility] Rx#:[id number] Rocephin 2,000 MG In Water for 20 / 20 inj. (sterile) 20 ML @ 600 mls/ hr IVPB Q24H [facility] Rx#:[id number] Output: Right Nephrostomy 250 / 250 650 / 650 Catheter 145 / 145 1200 / 1200 - Exam FHR: category 1 FHR comments: heart tones 140s reactive no contractions Abdomen: Present: gravid - Labs Labs: Abnormal lab results WBC 14.0 K/mcL (4.3-11.1) H 05/03/17 03:44 RBC 3.76 M/mcL (3.82-4.97) L 05/03/17 03:44 Hgb 10.4 g/dL (11.5-15.4) L 05/03/17 03:44 Hct 32.9 % (35.3-44.9) L 05/03/17 03:44 MCH 27.7 pg (28.0-33.3) L 05/03/17 03:44 Neutrophils # 11.2 K/mcL (1.6-8.9) H 05/03/17 03:44 Carbon Dioxide 22 mEq/L (23-29) L 05/04/17 06:42 Calculated Osmolality 279 (280-300) L 05/04/17 06:42 Calcium 8.2 mg/dL (8.6-10.3) L 05/04/17 06:42 Alkaline Phosphatase 175 Units/L (34-104) H 05/04/17 06:42 Serum Total Protein 5.7 g/dL (6.4-8.9) L 05/04/17 06:42 Albumin 2.7 g/dL (3.5-5.7) L 05/04/17 06:42 Albumin/Globulin Ratio 0.9 (1.1-2.2) L 05/04/17 06:42 Urine Clarity Cloudy (Clear) A 05/03/17 03:20 Urine Protein 100 mg/dL (Neg-Trace) H 05/03/17 03:20 Urine Blood Moderate (Negative) H 05/03/17 03:20 Urine Nitrite Positive (Negative) A 05/03/17 03:20 Ur Leukocyte Esterase Large (Negative) H 05/03/17 03:20 Urine Microscopic RBC 30-50 per hpf (0-3) H 05/03/17 03:20 Urine Microscopic WBC 50-100 per hpf (0-3) H 05/03/17 03:20 Ur Culture Indicated? YES (NO) A 05/03/17 03:20 Urine Opiates Screen Positive ng/mL (Syskvy=184) H 05/03/17 03:20
[2017-05-04 09:53] LABS: Basophils % 0.1 %; Eosinophils % 0.3 %; Hematocrit 27.4 % (35.3-44.9); Immature Granulocytes % 0.5 % (0-4); Lymphocytes # 1.4 K/mcL (0.6-4.6); Mean Corpuscular HGB Conc 30.7 g/dL (31.6-35.5); Mean Corpuscular Hemoglobin 27.5 pg (28.0-33.3); Mean Corpuscular Volume 89.5 fL (83.0-100.0); Mean Platelet Volume 11.1 fL (9.4-12.4); Monocytes # 0.7 K/mcL (0.0-1.3); Monocytes % 6.9 %; Neutrophils # 8.2 K/mcL (1.6-8.9); Platelet Count 266 K/mcL (140-400); Red Blood Count 3.06 M/mcL (3.82-4.97); Red Cell Distribution Width 14.8 % (11.5-14.5); Segmented Neutrophils % 79.2 %
[2017-05-04 09:54] LABS: Hemoglobin 8.4 g/dL (11.5-15.4)
--- NOTE | 2017-05-04 10:23 | Urology Progress Note ---
Date of Encounter: 05/04/17 Time of Encounter: 10:20 - Assessment and Plan (1) Pyelonephritis affecting in third trimester Current Visit: Yes Status: Acute Assessment and plan: 32-year-old woman with concern for left pyelonephritis. Her urine culture is now growing out gram-negative rods. IV antibiotics are currently vancomycin and ceftriaxone. Continue antibiotics and await final results of the culture. Consider transitioning to oral narcotics. Given the amount of IV fentanyl she is requiring, she may need an OxyContin taper. There is no need for surgical intervention this time she does a stent or nephrostomy tube. Continue Gonzalez today. Anticipate removal tomorrow morning. Urology will follow along. (2) Left flank pain Current Visit: No Status: Acute Progress Note Narrative: 32-year-old woman with left flank pain and a urinary tract infection. She had an MRI last night. I discussed the case with the radiologist. His initial review described no evidence of left-sided obstruction. There was some fluid around the left kidney as well as around the left ureter. He was not concerned for any obstructing kidney stone. Today she is still having some pain. Her urine is draining well into the Gonzalez. No fevers overnight. White blood cell count is improved. Objective Initial Vital Signs Temp Pulse Resp BP Pulse Ox 97.8 F 106 16 95/61 98 05/04/17 00:03 05/04/17 00:03 05/04/17 00:03 05/04/17 00:03 05/04/17 00:03 - General physical appearance Present: well developed, well nourished, no distress - Respiratory Present: normal respiratory effort - Abdomen Present: soft - Labs 05/04/17 09:05 05/04/17 06:42 Diabetes panel 05/04/17 Range/Units 06:42 Sodium 136 (136-145) mEq/L Potassium 3.8 (3.5-5.1) mEq/L Chloride 107 (98-107) mEq/L Carbon Dioxide 22 L (23-29) mEq/L BUN 6 (6-20) mg/dL Creatinine 0.64 (0.60-1.20) mg/dL Glucose 89 (70-105) mg/dL Calcium 8.2 L (8.6-10.3) mg/dL AST 17 (13-39) Units/L ALT 13 (7-52) Units/L Alkaline Phosphatase 175 H (34-104) Units/L Albumin 2.7 L (3.5-5.7) g/dL Calcium panel 05/04/17 Range/Units 06:42 Calcium 8.2 L (8.6-10.3) mg/dL Albumin 2.7 L (3.5-5.7) g/dL Pituitary panel 05/04/17 Range/Units 06:42 Sodium 136 (136-145) mEq/L Potassium 3.8 (3.5-5.1) mEq/L Chloride 107 (98-107) mEq/L Carbon Dioxide 22 L (23-29) mEq/L BUN 6 (6-20) mg/dL Creatinine 0.64 (0.60-1.20) mg/dL Glucose 89 (70-105) mg/dL Calcium 8.2 L (8.6-10.3) mg/dL Adrenal panel 05/04/17 Range/Units 06:42 Sodium 136 (136-145) mEq/L Potassium 3.8 (3.5-5.1) mEq/L Chloride 107 (98-107) mEq/L Carbon Dioxide 22 L (23-29) mEq/L BUN 6 (6-20) mg/dL Creatinine 0.64 (0.60-1.20) mg/dL Glucose 89 (70-105) mg/dL Calcium 8.2 L (8.6-10.3) mg/dL Total Bilirubin 0.6 (0.3-1.0) mg/dL AST 17 (13-39) Units/L ALT 13 (7-52) Units/L Alkaline Phosphatase 175 H (34-104) Units/L Albumin 2.7 L (3.5-5.7) g/dL - VTE Reasons for not Prescribing Prophylaxis: Treatment not Indicated - Low risk for VTE Consult Discharge Plan - Plan Referrals: NONE,PCP [Primary Care Provider] -
[2017-05-04] MEDS: Vancomycin 750 MG in D5% in Water 250 ML IVPB SCH (10:38)
[2017-05-04] MEDS ORDERED: *HR* FentaNYL (PF) 100 MCG/2 ML VIAL IVP PRN (10:59)
[2017-05-04] MEDS: Ringers Solution, Lactated 1,000 ML IVC SCH ×2 (11:20→19:47)
[2017-05-04] MEDS: Ondansetron 4 MG/2 ML VIAL IVP PRN ×2 (14:45→20:47)
[2017-05-04] MEDS: Acetaminophen 325 MG TABLET PO PRN (18:11)
[2017-05-04] MEDS ORDERED: Vancomycin 1,000 MG in D5% in Water 250 ML IVPB SCH (22:00)
[2017-05-05] MEDS: Ringers Solution, Lactated 1,000 ML IVC SCH ×3 (03:34→20:25)
[2017-05-05] MEDS: *HR* OxyCODONE Immed Rel 5 MG TABLET PO PRN ×5 (03:58→20:42)
[2017-05-05] MEDS: cefTRIAXone 2,000 MG in Water for inj. (sterile) 20 ML 20 ML IVPB SCH (03:58)
[2017-05-05] MEDS: Ondansetron 4 MG/2 ML VIAL IVP PRN ×3 (08:09→20:42)
[2017-05-05] MEDS ORDERED: Gentamicin 300 MG in 0.9 % Sodium Chloride 100 ML IVPB SCH (09:00)
--- NOTE | 2017-05-05 09:27 | OB/GYN Progress Note ---
Date of Encounter: 05/05/17 Time of Encounter: 09:25 - Assessment and Plan (1) 34 weeks gestation of Current Visit: Yes Status: Acute NST reactive this am. (2) Pyelonephritis affecting in third trimester Current Visit: Yes Status: Acute Urine culture postive for MDRO. Sensitive to gentamicin. Case discussed with M who recommends: 48 hours IV gentamicin and obtain sensitivity for phosphomycin. Per MFM would recommend continued outpatient management with phosphomycin if sensitive. If not would consult ID for length of therapy with gentamicin. Subjective - Subjective Interval history: Pt reports pain was 9/10 prior to medication this am. Pain is left flank area. She also reports some nausea. No other complaints. Antepartum ROS: movement normal, no loss of fluid, no vaginal bleeding, no contractions Objective - Vital Signs Vital Signs: Vital Signs Temp Pulse Pulse Resp BP Pulse Ox 05/05/17 07:45 97.9 F 62 16 107/67 98 05/05/17 03:43 97.7 F 71 16 113/65 98 05/05/17 00:17 98.1 F 85 16 82/56 97 05/04/17 20:03 97.5 F L 73 16 101/61 97 05/04/17 17:07 98.3 F 92 18 99/61 97 05/04/17 14:02 88 16 05/04/17 13:58 98.1 F 88 16 98/66 98 05/04/17 10:13 98.1 F 87 14 112/73 98 Intake and Output 05/04/17 05/05/17 05/05/17 23:59 07:59 15:59 Intake Total 1300 / 1300 1870 / 1870 Output Total 800 / 800 1974 / 1974 Balance 500 / 500 -105 / -105 Intake: IV Fluids 1000 / 1000 1270 / 1270 Lactated Ringers 1,000 ML @ 125 1000 / 1000 1000 / 1000 mls/hr IVC .Q8H [facility] Rx#: [id number] Vancocin 1,000 MG In Dextrose 5 250 / 250 % 250 ML @ 166.667 mls/hr IVPB Q12H [facility] Rx#:[id number] Rocephin 2,000 MG In Water for 20 / 20 inj. (sterile) 20 ML @ 600 mls/ hr IVPB Q24H [facility] Rx#:[id number] Oral 300 / 300 600 / 600 Output: Right Nephrostomy 250 / 250 325 / 325 Catheter 550 / 550 1650 / 1650 Other: Weight 74 kg Patient Weight 05/05/17 23:59 Weight 74 kg - Exam FHR: category 1 FHR comments: NST 140 BPM and reactive. Auscultation: bilateral: normal Abdomen: Present: soft, gravid. Absent: tenderness Uterus: Absent: tenderness Comments: Heart- RRR, systolic murmur noted CVAT- positive on left, mild TTP on right LE- normal inspection bilaterally, no edema, redness or warmth - Labs Labs: Abnormal lab results RBC 3.06 M/mcL (3.82-4.97) L 05/04/17 09:05 Hgb 8.4 g/dL (11.5-15.4) L D 05/04/17 09:05 Hct 27.4 % (35.3-44.9) L 05/04/17 09:05 MCH 27.5 pg (28.0-33.3) L 05/04/17 09:05 MCHC 30.7 g/dL (31.6-35.5) L 05/04/17 09:05 RDW 14.8 % (11.5-14.5) H 05/04/17 09:05 Carbon Dioxide 22 mEq/L (23-29) L 05/04/17 06:42 Calculated Osmolality 279 (280-300) L 05/04/17 06:42 Calcium 8.2 mg/dL (8.6-10.3) L 05/04/17 06:42 Alkaline Phosphatase 175 Units/L (34-104) H 05/04/17 06:42 Serum Total Protein 5.7 g/dL (6.4-8.9) L 05/04/17 06:42 Albumin 2.7 g/dL (3.5-5.7) L 05/04/17 06:42 Albumin/Globulin Ratio 0.9 (1.1-2.2) L 05/04/17 06:42 Urine Clarity Cloudy (Clear) A 05/03/17 03:20 Urine Protein 100 mg/dL (Neg-Trace) H 05/03/17 03:20 Urine Blood Moderate (Negative) H 05/03/17 03:20 Urine Nitrite Positive (Negative) A 05/03/17 03:20 Ur Leukocyte Esterase Large (Negative) H 05/03/17 03:20 Urine Microscopic RBC 30-50 per hpf (0-3) H 05/03/17 03:20 Urine Microscopic WBC 50-100 per hpf (0-3) H 05/03/17 03:20 Ur Culture Indicated? YES (NO) A 05/03/17 03:20 Vancomycin Trough 5.5 mcg/mL (10-20) L 05/04/17 21:36 Urine Opiates Screen Positive ng/mL (Vappqp=937) H 05/03/17 03:20
--- NOTE | 2017-05-05 10:40 | Urology Progress Note ---
Date of Encounter: 05/05/17 Time of Encounter: 10:38 - Assessment and Plan (1) Pyelonephritis affecting in third trimester Current Visit: Yes Status: Acute Assessment and plan: Enterobacter growing out. I spoke with OB staff today regarding her infection. Symptoms are on the left side. No strong indication to change out right nephrostomy tube. It is draining well. IV antibiotics and further recommendations per OB service and MFM. I would recommend a total of 14 day course of antibiotics for pyelonephritis. D/c Gomes today. Please call with questions or concerns. (2) Left flank pain Current Visit: No Status: Acute Progress Note Narrative: Pain is stable. No fevers overnight. WBC is normal. Urine draining well from right neph tube and from gomes. Objective Initial Vital Signs Temp Pulse Resp BP Pulse Ox 97.8 F 106 16 95/61 98 05/04/17 00:03 05/04/17 00:03 05/04/17 00:03 05/04/17 00:03 05/04/17 00:03 - General physical appearance Present: well developed, well nourished, no distress - Respiratory Present: normal respiratory effort - Abdomen Present: soft - Genitourinary Urine Appearance: Present: Clear - Labs 05/04/17 09:05 05/04/17 06:42 - VTE Reasons for not Prescribing Prophylaxis: Treatment not Indicated - Low risk for VTE Consult Discharge Plan - Plan Referrals: NONE,PCP [Primary Care Provider] -
[2017-05-05] MEDS: Acetaminophen 325 MG TABLET PO PRN ×2 (13:51→20:42)
[2017-05-06] MEDS: *HR* OxyCODONE Immed Rel 5 MG TABLET PO PRN ×6 (00:51→22:40)
[2017-05-06] MEDS: Acetaminophen 325 MG TABLET PO PRN (04:56)
[2017-05-06] MEDS: Ondansetron 4 MG/2 ML VIAL IVP PRN ×3 (04:58→22:59)
[2017-05-06] MEDS: Ringers Solution, Lactated 1,000 ML IVC SCH ×2 (05:00→15:38)
[2017-05-06] MEDS: Gentamicin 90 MG in 0.9 % Sodium Chloride 100 ML IVPB SCH ×2 (08:07→15:41)
--- NOTE | 2017-05-06 09:01 | OB/GYN Progress Note ---
Date of Encounter: 05/06/17 Time of Encounter: 08:59 - Assessment and Plan (1) 35 weeks gestation of Current Visit: Yes Status: Acute admitted for observation (2) Left flank pain Current Visit: Yes Status: Acute Continue IV antibiotic therapy Subjective - Subjective Principal diagnosis: Left flank pain Interval history: Patient resting in bed. Patient reports no change. Patient reports some relief with pain medication. Will continue IV antibiotics to finish 48 hours of therapeutic treatment while waiting on urine culture results. Antepartum ROS: movement normal, no loss of fluid, no vaginal bleeding, no contractions Objective - Vital Signs Vital Signs: Vital Signs Temp Pulse Resp BP Pulse Ox 05/06/17 08:00 98.0 F 62 16 120/79 98 05/06/17 04:45 98.2 F 79 16 123/81 98 05/06/17 00:45 97.8 F 76 16 121/78 98 05/05/17 19:45 97.5 F L 72 16 102/67 98 05/05/17 11:45 97.6 F 80 16 112/68 97 Intake and Output 05/05/17 05/06/17 05/06/17 23:59 07:59 15:59 Intake Total 1000 / 1000 1900 / 1900 Output Total 1600 / 1600 500 / 500 Balance 1000 / 1000 300 / 300 -500 / -500 Intake: IV Fluids 1000 / 1000 1000 / 1000 Lactated Ringers 1,000 ML @ 125 1000 / 1000 1000 / 1000 mls/hr IVC .Q8H [facility] Rx#: [id number] Oral 900 / 900 Output: Urine 800 / 800 250 / 250 Right Nephrostomy 800 / 800 250 / 250 Other: Stool Characteristics Normal for Patient Weight 74.644 kg Patient Weight 05/06/17 23:59 Weight 74.644 kg - Exam Auscultation: bilateral: normal Abdomen: Present: normal appearance, soft, gravid Uterus: Present: normal - Labs Labs: Abnormal lab results RBC 3.06 M/mcL (3.82-4.97) L 05/04/17 09:05 Hgb 8.4 g/dL (11.5-15.4) L D 05/04/17 09:05 Hct 27.4 % (35.3-44.9) L 05/04/17 09:05 MCH 27.5 pg (28.0-33.3) L 05/04/17 09:05 MCHC 30.7 g/dL (31.6-35.5) L 05/04/17 09:05 RDW 14.8 % (11.5-14.5) H 05/04/17 09:05 Carbon Dioxide 22 mEq/L (23-29) L 05/04/17 06:42 Calculated Osmolality 279 (280-300) L 05/04/17 06:42 Calcium 8.2 mg/dL (8.6-10.3) L 05/04/17 06:42 Alkaline Phosphatase 175 Units/L (34-104) H 05/04/17 06:42 Serum Total Protein 5.7 g/dL (6.4-8.9) L 05/04/17 06:42 Albumin 2.7 g/dL (3.5-5.7) L 05/04/17 06:42 Albumin/Globulin Ratio 0.9 (1.1-2.2) L 05/04/17 06:42 Urine Clarity Cloudy (Clear) A 05/03/17 03:20 Urine Protein 100 mg/dL (Neg-Trace) H 05/03/17 03:20 Urine Blood Moderate (Negative) H 05/03/17 03:20 Urine Nitrite Positive (Negative) A 05/03/17 03:20 Ur Leukocyte Esterase Large (Negative) H 05/03/17 03:20 Urine Microscopic RBC 30-50 per hpf (0-3) H 05/03/17 03:20 Urine Microscopic WBC 50-100 per hpf (0-3) H 05/03/17 03:20 Ur Culture Indicated? YES (NO) A 05/03/17 03:20 Vancomycin Trough 5.5 mcg/mL (10-20) L 05/04/17 21:36 Urine Opiates Screen Positive ng/mL (Lrqrgf=559) H 05/03/17 03:20
[2017-05-06] MEDS ORDERED: Scopolamine Patch 1.5 MG PATCH.TD72 TD SCH (13:15)
[2017-05-07] MEDS: Gentamicin 90 MG in 0.9 % Sodium Chloride 100 ML IVPB SCH ×3 (00:13→16:30)
[2017-05-07] MEDS: Ringers Solution, Lactated 1,000 ML IVC SCH ×2 (00:14→10:28)
[2017-05-07] MEDS: *HR* OxyCODONE Immed Rel 5 MG TABLET PO PRN ×5 (02:44→18:31)
--- NOTE | 2017-05-07 09:28 | OB/GYN Progress Note ---
Date of Encounter: 05/07/17 Time of Encounter: 09:26 - Assessment and Plan (1) 34 weeks gestation of Current Visit: Yes Status: Acute Continue NSTs. (2) Pyelonephritis affecting in third trimester Current Visit: Yes Status: Acute MDRO infection Remains on IV gentamycin, awaiting fosfomycin sensitivity. Please change nephrostomy tube dressing. Discharge pending sensitivity results. Subjective - Subjective Interval history: Pt states continues to have left flank pain, but is somewhat relived when taking oral pain medication, reports good movement, denies contractions, vaginal bleeding or leaking of fluid. Tolerates po diet, voiding and having adequate output from nephrostomy tube. Antepartum ROS: movement normal, no loss of fluid, no vaginal bleeding, no contractions Objective - Vital Signs Vital Signs: Vital Signs Temp Pulse Resp BP Pulse Ox 05/07/17 08:55 98.0 F 58 18 111/67 97 05/07/17 04:40 98.0 F 63 16 111/70 97 05/07/17 00:29 97.5 F L 60 16 110/74 97 05/06/17 20:15 97.4 F L 70 16 119/75 96 05/06/17 16:45 97.6 F 73 18 123/78 99 05/06/17 11:55 97.9 F 60 16 126/80 97 Intake and Output 05/06/17 05/07/17 05/07/17 23:59 07:59 15:59 Intake Total 1302.25 / 1302.25 602.25 / 602.25 Output Total 2200 / 2200 800 / 800 Balance -897.75 / -897.75 -197.75 / -197.75 Intake: IV Fluids 1102.25 / 1102.25 102.25 / 102.25 Lactated Ringers 1,000 ML @ 125 1000 / 1000 mls/hr IVC .Q8H [facility] Rx#: [id number] Garamycin 90 MG In 0.9 % Sodium 102.25 / 102.25 102.25 / 102.25 Chloride 100 ML @ 102.25 mls/ hr IVPB Q8H [facility] Rx#:[id number] Oral 200 / 200 500 / 500 Output: Urine 1700 / 1700 400 / 400 Right Nephrostomy 500 / 500 400 / 400 Other: Meal Dinner Percent of Meal Consumed 20% Stool Size Moderate Stool Characteristics Normal for Patient Normal for Patient Weight 74.888 kg Patient Weight 05/07/17 23:59 Weight 74.888 kg - Exam FHR: auscultation normal Auscultation: bilateral: normal Abdomen: Present: normal appearance, soft, gravid Uterus: Present: normal (left CVA tenderness, right nephrostomy tube) - Labs Labs: Abnormal lab results RBC 3.06 M/mcL (3.82-4.97) L 05/04/17 09:05 Hgb 8.4 g/dL (11.5-15.4) L D 05/04/17 09:05 Hct 27.4 % (35.3-44.9) L 05/04/17 09:05 MCH 27.5 pg (28.0-33.3) L 05/04/17 09:05 MCHC 30.7 g/dL (31.6-35.5) L 05/04/17 09:05 RDW 14.8 % (11.5-14.5) H 05/04/17 09:05 Carbon Dioxide 22 mEq/L (23-29) L 05/04/17 06:42 Calculated Osmolality 279 (280-300) L 05/04/17 06:42 Calcium 8.2 mg/dL (8.6-10.3) L 05/04/17 06:42 Alkaline Phosphatase 175 Units/L (34-104) H 05/04/17 06:42 Serum Total Protein 5.7 g/dL (6.4-8.9) L 05/04/17 06:42 Albumin 2.7 g/dL (3.5-5.7) L 05/04/17 06:42 Albumin/Globulin Ratio 0.9 (1.1-2.2) L 05/04/17 06:42 Urine Clarity Cloudy (Clear) A 05/03/17 03:20 Urine Protein 100 mg/dL (Neg-Trace) H 05/03/17 03:20 Urine Blood Moderate (Negative) H 05/03/17 03:20 Urine Nitrite Positive (Negative) A 05/03/17 03:20 Ur Leukocyte Esterase Large (Negative) H 05/03/17 03:20 Urine Microscopic RBC 30-50 per hpf (0-3) H 05/03/17 03:20 Urine Microscopic WBC 50-100 per hpf (0-3) H 05/03/17 03:20 Ur Culture Indicated? YES (NO) A 05/03/17 03:20 Vancomycin Trough 5.5 mcg/mL (10-20) L 05/04/17 21:36 Urine Opiates Screen Positive ng/mL (Vdspgu=[id number]) H 05/03/17 03:20
[2017-05-07] MEDS: Ondansetron 4 MG/2 ML VIAL IVP PRN ×2 (10:29→18:40)
--- NOTE | 2017-05-07 13:55 | Event Note ---
Date of Encounter: 05/07/17 Time of Encounter: 13:53 ID consulted for ATB recommendations Also discussed use of Cipro and Levaquin if recomended with Dr. Annalisa ANG at [facility] and she stated the benefits outweigh the risks of use and they may be prescribed if recommended by ID
--- NOTE | 2017-05-07 15:40 | Infectious Disease Consult ---
Date of Encounter: 05/07/17 Time of Encounter: 15:38 Assessment and Plan (1) Sepsis Status: Acute Assessment and plan: The patient had two SIRS criteria on admission. Likely secondary to UTI and pyelonephritis. Improved. Leukocytosis and tachycardia have resolved. No blood cultures or lactic acid were drawn. Qualifiers: Sepsis type: sepsis due to unspecified organism Qualified Code(s): A41.9 - Sepsis, unspecified organism (2) Pyelonephritis affecting in third trimester Status: Acute Assessment and plan: Causative organism MDRO Enterobacter cloacae. Etiology likely multifactorial. MR Urogram showed mild left perinephric free fluid and mild hydronephrosis without a stone. Patient is clinically symptomatic. Per the sensitivity report, the bacteria is sensitive only to Bactrim ( Cat D), Fluoroquinolones (Preg Cat C), Gentamicin (Preg Cat D) and Tobramycin (Preg Cat D). We would likely be able to use Avycaz, but we do not have the susceptibilities for this medication at this time and we do not carry it on formulary here. I had a long discussion with the patient about the risks, benefits, and alternatives of the medications. With Category C medications, we do not know the effects on the fetus, but we do know that she needs to be treated in order to prevent progression of her infection. I discussed with her that we could theoretically use the fluoroquinolones and according to the notes, the [facility] physicians are okay with this, but that the Avycaz is a category B medication but she would require transfer to another facility where they have the medication on formulary and the medication only comes in an IV form and would require a PICC line and home IV antibiotics. I gave the patient adequate time to ask questions and she stated to me she wanted to call her to discuss this. I advised her that Dr. Sánchez would be around and he could answer any additional questions she has. If the patient opts for the Levaquin, recommend 750mg PO daily to complete a total of 14 days of treatment. Monitor renal function and dose-adjust antibiotics. Continue contact precautions. (3) UTI (urinary tract infection) Status: Acute Assessment and plan: Causative organism E. cloacae MDRO. Antibiotics as above. Qualifiers: Urinary tract infection type: acute pyelonephritis Qualified Code(s): N10 - Acute pyelonephritis (4) Hydronephrosis, left Status: Acute Assessment and plan: Etiology unclear. Urology consulted. No additional intervention required at this time. (5) Nephrolithiasis Status: Acute Assessment and plan: Patient states she passed a kidney stone yesterday, but no stones noted on MR urogram. Pathology pending. Follow up with Urology. (6) Hydronephrosis, right Status: Acute (7) Left flank pain Status: Acute Assessment and plan: Likely secondary to pyelonephritis. Pain management per the [facility] team. (8) 35 weeks gestation of Status: Acute Infectious Disease HPI - Data of Consult Patient: new to practice Consult date: 05/07/17 Requesting Physician: Belem Farooq CNM Primary Care Provider: PCP NONE - Consult Narrative Reason for consult: MDR UTI/Pyelonephritis History of present illness: Ms. Gant is a 32 year old female with a past medical history of kidney stones, hydronephrosis status post stent placement followed by removal with PCNT placement, and UTI. The patient was admitted to the hospital 05/03/17 for UTI and pyelonephritis. We are consulted 05/07/17 for antibiotic recommendations for MDRO UTI. Briefly, the patient is a 32 year old female with a past medical history as stated above. She is currently 34 weeks . Two weeks ago, the patient was evaluated in the office for her regular visit. She reported urinary frequency and dysuria. She was placed on PO Keflex, but was called back to the office for an IM rocephin injection when her culture resulted. She continued to have discomfort, but states she began to have severe left flank pain the day of presentation. The patient presented to the OB triage department with complaints of severe left flank pain. Upon arrival, she was tachycardic and had a leukocytosis. Urinalysis was positive for blood, nitrites, large amount leukocyte esterase. She was admitted to the OB unit for observation. She had a retroperitoneal ultrasound that was negative. Urology was consulted and recommended an MR urogram that showed mild left perinephric free fluid with mild hydronephrosis, but no kidney stones. She was started on Rocephin and Vancomycin based on urine culture obtained in the OB office on 04/24/17 that grew Enterobacter cloacae and amp-sensitive Enterococcus. Her urine culture obtained during this hospitalization grew out MDRO Enterobacter cloacae, sensitive only to Gentamicin, fluoroquinolones, and tobramycin. Currently, the patient is on IV Gentamicin. We've been asked to evaluate and make further recommendations. Since admission, the patient has been afebrile. Her tachycardia and leukocytosis have resolved. No blood cultures or lactic acid were obtained. The patient states she continues to have left flank pain. She denies fevers, chills , or rigors. Reports some mild headaches responsive to Tylenol. Denies congestion, earache, sore throat, or cough. Denies chest pain or shortness of breath. Reports persistent nausea with vomiting that limits her PO intake. Complains of left flank pain and dysuria since passing a kidney stone yesterday. Denies gross hematuria or right CVA pain. States her nephrostomy tube is draining well. Denies vaginal bleeding, discharge, or fluid leaking. Reports good movement. Denies oral thrush or skin lesions. CC: Belem Farooq CNM Past Med Surg Social Fam HX - Past Medical History Attestation: Yes The following information was validated with the patient. Source: patient, old records reviewed, nursing notes reviewed Medical history: kidney stones, migraine, other (Right hydronephrosis s/p nephrostomy tube placement at [facility] 1 month ago) Psychiatric history: no psych history - Past Surgical History Surgical History: ureteral stent - Social History Smoking Status: Never smoker Smokeless Tobacco Status: No Alcohol use: none Drug use: none Current living situation: Home, With Family Activity Level: Independent ambulation Recent Out of Country Travel Within the Last 8 Weeks: No Exposure or Possible Exposure to Illness During Travel: No - Family History Mother Adopted: No Living Status: Still Living Hx Family Cardiac Disorders: No Hx Family Respiratory Disorders: No Hx Family Cancer: No Hx Family GI Disorders: No Hx Family Endocrine Disorder: Yes (Graves disease) Hx Family Neuromuscular Disorders: No Hx Family Neurologic Disorders: No Hx Family HEENT Disorders: No Hx Family Autoimmune Disorders: No Infectious Disease-CN:Meds 3 Allergy/AdvReac Type Severity Reaction Status Date / Time morphine Allergy Rash Verified 05/03/17 12:41 All systems: reviewed and no additional remarkable complaints except as stated Exam - Constitutional Vitals: Temp Pulse Resp BP Pulse Ox 98.0 F 58 18 111/67 97 05/07/17 08:55 05/07/17 08:55 05/07/17 08:55 05/07/17 08:55 05/07/17 08:55 General appearance: average body habitus, cooperative, no acute distress - Head Head exam: Present: atraumatic, normal inspection, normocephalic - Eye Eye exam: Present: EOMI, normal appearance, PERRL Pupils: Present: normal accommodation - ENT ENT exam: Present: mucous membranes moist - Neck Neck exam: Present: normal inspection - Respiratory Respiratory exam: Present: CTAB. Absent: rales, respiratory distress, rhonchi, wheezes - Cardiovascular Cardiovascular exam: Present: RRR, +S1, +S2 - GI/Abdominal GI/Abdominal exam: Present: distended (gravid), normal bowel sounds, soft. Absent: tenderness - Extremities Exam Extremities exam: Present: normal inspection. Absent: joint swelling, pedal edema, tenderness - Back Exam Back exam: Present: CVA tenderness (L). Absent: CVA tenderness (R) Additional comments: Right nephrostomy tube draining clear yellow urine. - Neurological Exam Neurological exam: Present: alert, oriented X3, no focal deficits - Psychiatric Psychiatric exam: Present: normal affect, normal mood - Skin Skin exam: Present: dry, intact, normal color, warm Infectious Disease CN: Results - Labs CBC & Chem 7: 05/04/17 09:05 05/07/17 16:18 Cultures: Cultures 05/03/17 03:20 Urine Culture - Preliminary Urine,Clean Catch Enterobacter cloacae MDRO Serology: Serology 05/03/17 Range/Units 03:20 Urine Color Yellow (Yellow) Urine Clarity Cloudy A (Clear) Urine pH 6.0 (5.0-8.0) pH Units Ur Specific [place] 1.021 (1.010-1.025) Urine Protein 100 H (Neg-Trace) mg/dL Urine Glucose (UA) Normal (Normal) mg/dL Urine Ketones Negative (Negative) mg/dL Urine Blood Moderate H (Negative) Urine Nitrite Positive A (Negative) Urine Bilirubin Negative (Negative) Urine Urobilinogen Normal (Normal) mg/dL Ur Leukocyte Esterase Large H (Negative) Urine Microscopic RBC 30-50 H (0-3) per hpf Urine Microscopic WBC 50-100 H (0-3) per hpf Ur Squamous Epith Cells Few (None-Few) per lpf Urine Bacteria Few (None-Few) per hpf Hyaline Casts Few (None-Few) per lpf Ur Culture Indicated? YES A (NO) - VTE Reasons for not Prescribing Prophylaxis: Treatment not Indicated - Low risk for VTE Consult Discharge Plan - Plan Referrals: NONE,PCP [Primary Care Provider] - - Attending Attestation I examined this patient and my medical decision-making was reviewed with the Resident Physician. I agree with the documented findings, disposition and treatment plan as described except to the extent set forth below. This is an addendum to original report dictated by China Handley CNP. Please refer to China's note for full detail. Patient is a 32-year-old pleasant female who is 35 weeks presented to the OB triage department with complaints of severe left flank pain. Upon arrival , she was tachycardic and had a leukocytosis. Urinalysis was positive for blood , nitrites, large amount leukocyte esterase. She was admitted to the OB unit for observation. She had a retroperitoneal ultrasound that was negative. Urology was consulted and recommended an MR urogram that showed mild left perinephric free fluid with mild hydronephrosis, but no kidney stones. She was started on Rocephin and Vancomycin based on urine culture obtained in the OB office on 04/24/17 that grew Enterobacter cloacae and amp-sensitive Enterococcus. Her urine culture obtained during this hospitalization grew out MDRO Enterobacter cloacae, sensitive only to Gentamicin, fluoroquinolones, and tobramycin. Currently, the patient is on IV Gentamicin. We've been asked to evaluate and make further recommendations. Since admission, the patient has been afebrile. Her tachycardia and leukocytosis have resolved. No blood cultures or lactic acid were obtained. The patient states she continues to have left flank pain. She denies fevers, chills , or rigors. Reports some mild headaches responsive to Tylenol. Denies congestion, earache, sore throat, or cough. Denies chest pain or shortness of breath. Reports persistent nausea with vomiting that limits her PO intake. Complains of left flank pain and dysuria since passing a kidney stone yesterday. Denies gross hematuria or right CVA pain. States her nephrostomy tube is draining well. Denies vaginal bleeding, discharge, or fluid leaking. Reports good movement. Denies oral thrush or skin lesions. Patient was with her and 2 children when I entered the room. She thought things over and global things with her and they want to go with levofloxacin. She had some questions regarding the classification of risk. Patient currently is comfortable and wants to continue with the levofloxacin. Agree with levofloxacin for now duration of treatment is probably 10-14 days. Patient told to eat yogurt so she doesn't get diarrhea. No further recommendations, we'll sign off.
[2017-05-07 16:53] LABS: BUN/Creatinine Ratio 10 (6-26); Blood Urea Nitrogen 6 mg/dL (6-20); eGFR For African Americans > 60 (> 60); eGFR For Non-African Americans > 60 (> 60)
--- NOTE | 2017-05-07 20:15 | Discharge Summary ---
Date of Encounter: 05/07/17 Time of Encounter: 20:16 - Discharge Diagnosis (1) 35 weeks gestation of Priority: Secondary Status: Acute (2) Pyelonephritis affecting in third trimester Priority: Primary Status: Acute Comments: Discharge home on oral antibiotics Follow up with Dr. Acosta tomorrow as scheduled VSS Pain controlled with po meds Tolerating regular diet Ambulating independently Voiding independently Nephrostomy in place on right - Discharge Medications Prescriptions: Levofloxacin [Levaquin] 750 mg PO DAILY #14 tablet Home Medications: Levofloxacin [Levaquin] 750 mg PO DAILY #14 tablet 05/07/17 [Rx] Allergies/Adverse Reactions: 3 Allergy/AdvReac Type Severity Reaction Status Date / Time morphine Allergy Rash Verified 05/03/17 12:41 Data Procedures and tests throughout hospitalization: Laboratory Tests 05/03/17 05/03/17 05/03/17 03:20 03:20 03:44 WBC 14.0 H RBC 3.76 L Hgb 10.4 L Hct 32.9 L MCV 87.5 MCH 27.7 L MCHC 31.6 RDW 14.4 Plt Count 374 MPV 11.1 Immature Gran % 0.8 Seg Neutrophils % 79.9 Lymphocytes % 13.8 Monocytes % 5.1 Eosinophils % 0.3 Basophils % 0.1 Neutrophils # 11.2 H Lymphocytes # 1.9 Monocytes # 0.7 Eosinophils # 0.0 Basophils # 0.0 Sodium Potassium Chloride Carbon Dioxide BUN Creatinine Est GFR ( Amer) Est GFR (Non-Af Amer) BUN/Creatinine Ratio Glucose Calculated Osmolality Calcium Total Bilirubin AST ALT Alkaline Phosphatase Serum Total Protein Albumin Globulin Albumin/Globulin Ratio Urine Color Yellow Urine Clarity Cloudy A Urine pH 6.0 Ur Specific [place] 1.021 Urine Protein 100 H Urine Glucose (UA) Normal Urine Ketones Negative Urine Blood Moderate H Urine Nitrite Positive A Urine Bilirubin Negative Urine Urobilinogen Normal Ur Leukocyte Esterase Large H Urine Microscopic RBC 30-50 H Urine Microscopic WBC 50-100 H Ur Squamous Epith Cells Few Urine Bacteria Few Hyaline Casts Few Ur Culture Indicated? YES A Gentamicin Trough Random Gentamicin Vancomycin Trough Urine Opiates Screen Positive H Ur Barbiturates Screen Negative Ur Phencyclidine Scrn Negative Ur Amphetamines Screen Negative U Benzodiazepines Scrn Negative Urine Cocaine Screen Negative U Marijuana (THC) Screen Negative 01/27/18 01/28/18 01/28/18 03:44 06:42 09:05 WBC 10.4 RBC 3.06 L Hgb 8.4 L D Hct 27.4 L MCV 89.5 MCH 27.5 L MCHC 30.7 L RDW 14.8 H Plt Count 266 MPV 11.1 Immature Gran % 0.5 Seg Neutrophils % 79.2 Lymphocytes % 13.0 Monocytes % 6.9 Eosinophils % 0.3 Basophils % 0.1 Neutrophils # 8.2 Lymphocytes # 1.4 Monocytes # 0.7 Eosinophils # 0.0 Basophils # 0.0 Sodium 134 L 136 Potassium 3.2 L 3.8 Chloride 102 107 Carbon Dioxide 20 L 22 L BUN 12 6 Creatinine 0.87 0.64 Est GFR ( Amer) > 60 > 60 Est GFR (Non-Af Amer) > 60 > 60 BUN/Creatinine Ratio 14 9 Glucose 112 H 89 Calculated Osmolality 279 L 279 L Calcium 9.0 8.2 L Total Bilirubin 0.4 0.6 AST 25 17 ALT 17 13 Alkaline Phosphatase 212 H 175 H Serum Total Protein 7.2 5.7 L Albumin 3.5 2.7 L Globulin 3.7 H 3.0 Albumin/Globulin Ratio 0.9 L 0.9 L Urine Color Urine Clarity Urine pH Ur Specific [place] Urine Protein Urine Glucose (UA) Urine Ketones Urine Blood Urine Nitrite Urine Bilirubin Urine Urobilinogen Ur Leukocyte Esterase Urine Microscopic RBC Urine Microscopic WBC Ur Squamous Epith Cells Urine Bacteria Hyaline Casts Ur Culture Indicated? Gentamicin Trough Random Gentamicin Vancomycin Trough Urine Opiates Screen Ur Barbiturates Screen Ur Phencyclidine Scrn Ur Amphetamines Screen U Benzodiazepines Scrn Urine Cocaine Screen U Marijuana (THC) Screen 05/04/17 05/05/17 05/07/17 21:36 21:44 16:18 WBC RBC Hgb Hct MCV MCH MCHC RDW Plt Count MPV Immature Gran % Seg Neutrophils % Lymphocytes % Monocytes % Eosinophils % Basophils % Neutrophils # Lymphocytes # Monocytes # Eosinophils # Basophils # Sodium Potassium Chloride Carbon Dioxide BUN Creatinine Est GFR ( Amer) Est GFR (Non-Af Amer) BUN/Creatinine Ratio Glucose Calculated Osmolality Calcium Total Bilirubin AST ALT Alkaline Phosphatase Serum Total Protein Albumin Globulin Albumin/Globulin Ratio Urine Color Urine Clarity Urine pH Ur Specific [place] Urine Protein Urine Glucose (UA) Urine Ketones Urine Blood Urine Nitrite Urine Bilirubin Urine Urobilinogen Ur Leukocyte Esterase Urine Microscopic RBC Urine Microscopic WBC Ur Squamous Epith Cells Urine Bacteria Hyaline Casts Ur Culture Indicated? Gentamicin Trough 1.47 Random Gentamicin 1.1 Vancomycin Trough 5.5 L Urine Opiates Screen Ur Barbiturates Screen Ur Phencyclidine Scrn Ur Amphetamines Screen U Benzodiazepines Scrn Urine Cocaine Screen U Marijuana (THC) Screen 05/07/17 16:18 WBC RBC Hgb Hct MCV MCH MCHC RDW Plt Count MPV Immature Gran % Seg Neutrophils % Lymphocytes % Monocytes % Eosinophils % Basophils % Neutrophils # Lymphocytes # Monocytes # Eosinophils # Basophils # Sodium Potassium Chloride Carbon Dioxide BUN 6 Creatinine 0.63 Est GFR ( Amer) > 60 Est GFR (Non-Af Amer) > 60 BUN/Creatinine Ratio 10 Glucose Calculated Osmolality Calcium Total Bilirubin AST ALT Alkaline Phosphatase Serum Total Protein Albumin Globulin Albumin/Globulin Ratio Urine Color Urine Clarity Urine pH Ur Specific [place] Urine Protein Urine Glucose (UA) Urine Ketones Urine Blood Urine Nitrite Urine Bilirubin Urine Urobilinogen Ur Leukocyte Esterase Urine Microscopic RBC Urine Microscopic WBC Ur Squamous Epith Cells Urine Bacteria Hyaline Casts Ur Culture Indicated? Gentamicin Trough Random Gentamicin Vancomycin Trough Urine Opiates Screen Ur Barbiturates Screen Ur Phencyclidine Scrn Ur Amphetamines Screen U Benzodiazepines Scrn Urine Cocaine Screen U Marijuana (THC) Screen Labs on day of discharge: Labs from last 24 hours 05/07/17 05/07/17 16:18 16:18 BUN 6 Creatinine 0.63 Est GFR ( Amer) > 60 Est GFR (Non-Af Amer) > 60 BUN/Creatinine Ratio 10 Gentamicin Trough 1.47 Preliminary micro results at discharge 05/03/17 03:20 Urine Culture - Preliminary Urine,Clean Catch Enterobacter cloacae MDRO - Impressions ITS Impressions Retroperitoneum Ultrasound 05/03/17 07:55 IMPRESSION: Kidneys appear grossly unremarkable in appearance. There is no evidence of hydronephrosis. Evaluation of the bladder is limited. D/ / 05/03/2017 09:53:11 Bola Maza MD / shakira Interpreting Provider: Bola Maza MD Abdomen MRI 05/03/17 12:21 IMPRESSION: 1. Technically limited due to patient motion. 2. Mild left perinephric free fluid and mild left hydronephrosis. The most distal ureter appears normal in course and caliber. A discrete stone is not identified. 3. Gravid uterus without gross abnormality on non dedicated imaging. D/ / 05/05/2017 07:53:17 Nuria Marcial MD / zarina Interpreting Provider: Nuria Marcial MD Date of admission: 05/06/17 18:13 Primary care physician: PCP NONE Consults: 05/03/17 10:39 Consult to Urology [CONS] Routine Consulting Provider: Urology Natalia Reason for Consult: 34 wks gestation, right nephrostomy tube, left flank pain , normal renal US, limited urine ouput on left, U/A suggests pyelo, on Rocephin and Vanc basaed on previous urine cx Time Notified: 10:41 Call Completed: Yes 05/07/17 13:43 Consult to Infectious Diseases [CONS] Routine Consulting Provider: Infectious Disease [place] Reason for Consult: UTI- MDRO Time Notified: 13:44 Call Completed: Yes Discharging clinician: April Calabrese Anticipated date of discharge: 05/07/17 - Patient Status Disposition: Home, Self-Care Condition: Good Functional capacity at discharge: independent ambulation Overall status at discharge: patient is progressing back to baseline - Discharge Instructions Follow Up With: NONE,PCP [Primary Care Provider] - Laurence Acosta DO [Partnered Physician] - - Diet and Activity Activity: increase activity as tolerated Diet: regular diet Hospital Course [facility] DEPARTMENT DISPATCHER Reason for admission: other (Left flank pain) Discharge diagnosis: other (Pyelonephritis of in the 3rd trimester) Time Attestation: Total time spent providing and/or coordinating discharge services: Time Spent: Less than 30 minutes Exam - Constitutional Vitals: Temp Pulse Resp BP Pulse Ox 98.1 F 66 18 95/67 98 05/07/17 16:09 05/07/17 16:09 05/07/17 16:09 05/07/17 16:09 05/07/17 16:09 General appearance IM: A&O X 3, no acute distress - Respiratory Respiratory exam: Present: CTAB - Cardiovascular Cardiovascular exam IM: Present: RRR, +S1, +S2 - GI/Abdominal GI/Abdominal exam IM: soft - Rectal Rectal exam: deferred - Extremities Exam Extremities exam IM: Present: full ROM, pedal edema - Neurological Exam Neurological exam: alert, oriented X3, reflexes normal - Psychiatric Additional comments: Excited to go home. Feeling mentally well. - VTE Reasons for not Prescribing Prophylaxis: Treatment not Indicated - Low risk for VTE
[2017-05-07 20:38] VITALS: BP 120/76
[2017-05-07] MEDS ORDERED: Aminoglycoside Consult 1 EACH MC ONE (21:14)
== END 2017-05-07 21:15 | disposition home or self-care (01) | DRG 781 ==
LOC: 1NENULAB → 1NENUOBS 22:43
PROVIDERS: ADMIT Advanced Practice Midwife; ATTEND Advanced Practice Midwife

== ENCOUNTER 2017-05-19 08:00 | Inpatient (IN) ==
[2017-05-19] MEDS ORDERED: Famotidine 20 MG/2 ML VIAL IVP PRN (08:35)
[2017-05-19] MEDS ORDERED: Ondansetron 4 MG/2 ML VIAL IVP PRN (08:35)
[2017-05-19] MEDS ORDERED: *HR* Nalbuphine 20 MG/ML AMPUL IVP PRN (08:35)
[2017-05-19] MEDS ORDERED: Naloxone 0.4 MG/ML INJ IVP PRN (08:35)
[2017-05-19] MEDS ORDERED: Ringers Solution, Lactated 1,000 ML IVC SCH (08:45)
[2017-05-19 09:11] LABS: Basophils % 0.4 %; Eosinophils # 0.1 K/mcL (0.0-0.6); Eosinophils % 1.1 %; Hematocrit 31.4 % (35.3-44.9); Hemoglobin 9.8 g/dL (11.5-15.4); Immature Granulocytes % 0.6 % (0-4); Lymphocytes % 24.4 %; Mean Corpuscular HGB Conc 31.2 g/dL (31.6-35.5); Mean Corpuscular Volume 86.5 fL (83.0-100.0); Mean Platelet Volume 11.5 fL (9.4-12.4); Monocytes # 0.6 K/mcL (0.0-1.3); Monocytes % 7.6 %; Neutrophils # 5.3 K/mcL (1.6-8.9); Platelet Count 312 K/mcL (140-400); Red Blood Count 3.63 M/mcL (3.82-4.97); Red Cell Distribution Width 14.6 % (11.5-14.5); Segmented Neutrophils % 65.9 %
[2017-05-19 09:16] LABS: Amphetamine Screen,Urine Negative ng/mL (Cutoff=1000); Barbiturate Screen,Urine Negative ng/mL (Cutoff=200); Benzodiazepines Screen,Urine Negative ng/mL (Cutoff=200); Cannabinoid Screen,Urine Negative ng/mL (Cutoff = 50); Cocaine Screen,Urine Negative ng/mL (Cutoff= 300); Opiate Screen,Urine Negative ng/mL (Cutoff=300); Phencyclidine Screen,Urine Negative ng/mL (Cutoff=25)
[2017-05-19] MEDS ORDERED: Epidural Premix (fent/bupiv) 110 ML EP ONE ×2 (09:31→16:04)
--- NOTE | 2017-05-19 09:40 | Anesthesia Evaluation PreOp ---
Date of Encounter: 05/19/17 Time of Encounter: 09:28 - Past History Planned Operation: vaginal del, , induction term Cardiac History: Denies any Significant Hx Pulmonary History: Denies Any Significant HX PRINCIPAL LIBRARIAN History: Denies Any Significant HX Other Medical History: Renal (bilateral kidney stones during preg, currently has right nephrostomy tube plan for [facility] following up CT and removal.) Anesthesia History: No Prior Anesthetic Complications, Past Anesthesia Alcohol Use: none Drug use: none Medications and Allergies Levofloxacin [Levaquin] 750 mg PO DAILY #14 tablet 05/07/17 [Rx] Oxycodone HCl 10 mg PO Q6HR PRN 6 Days #48 tablet 05/07/17 [Rx] 3 Allergy/AdvReac Type Severity Reaction Status Date / Time morphine Allergy Rash Verified 05/03/17 12:41 Anesthesia Results - Labs 05/19/17 08:58 Anesthesia Exam - HEENT Pupil (Motor): Pupils equal Mallampati: II Teeth: Normal Oral Opening: Greater than 3 - PRINCIPAL LIBRARIAN LOC: Oriented PRINCIPAL LIBRARIAN Motor: Normal RUE, Normal LUE, Normal RLE, Normal LLE, Normal Face PRINCIPAL LIBRARIAN Sensory: Normal: RUE, LUE, RLE, LLE, Face - Cardiac Rhythm: Regular Murmur: None - Pulmonary Breath Sounds: bilateral Clear Respiratory Effort: Symmetrical Anesthesia Assess/Plan ASA Score: 2 Modified Aniya Scale for Level of Consciousness: Cooperative, oriented, and tranquil Anesthetic Plan: General, Regional Monitoring Plan: Standard Monitors
[2017-05-19 09:57] LABS: BUN/Creatinine Ratio 17 (6-26); Blood Urea Nitrogen 11 mg/dL (6-20); Calcium 8.9 mg/dL (8.6-10.3); Carbon Dioxide 21 mEq/L (23-29); Chloride 104 mEq/L (98-107); Glucose 82 mg/dL (70-105); Osmolality,Calculated 274 (280-300); Potassium 3.9 mEq/L (3.5-5.1); Sodium 133 mEq/L (136-145); eGFR For African Americans > 60 (> 60); eGFR For Non-African Americans > 60 (> 60)
--- NOTE | 2017-05-19 10:11 | Anesthesia Procedures ---
Date of Encounter: 05/19/17 Time of Encounter: 09:42 Procedures: Anesthesia - Epidural/Spinal Patient ID/Chart reviewed: Yes Patient examined: Yes OB Eval: Gestational age: term OB Eval: : 5 OB Eval: Hx Para: 2 OB Eval: Contractions: Non-stressed pattern Consent Obtained: Yes Supplemental Oxygen: None/Room Air Site Prep: Aseptic Technique, Sterile prep and drape, 0.5% Chlorhexidine/Alcohol Patient position: upright Local Anesthetic: Lidocaine 1% Amount of Local Anesthetic used: 2 Touhy Needle Gauge: 18 Touhy Needle Depth (cm): 6 Catheter Depth at Skin (cm): 10 Test Dose (1.5% Lido + Epi): Volume given (mls): 3 Test Dose Result: Negative Loading Dose: Other: 10ml from solution Loading Dose Administered: Thru Catheter Infusion Med: 0.125% Bupivacaine w/ 2 mcg/ml Fentanyl Infusion Rate (mls/hr): [address]: Tegaderm, Tape Interspace Used: L3-L4 Loss of Resistance (MARILU): Yes (saline) Blood: No CSF: No Paresthesia: No Procedure: vss though out, FHR stable though out, nephr dressing removed, prep x2 with chloraprep to epidural site and neph seperate, then sterile dressing to neph site first, then epidural performed, manisha well.
[2017-05-19] MEDS ORDERED: Oxytocin 20 units/ LR 1000 mL 20 UNIT/1,000 ML BAG IVC SCH ×2 (10:15→19:55)
--- NOTE | 2017-05-19 11:45 | OB/GYN History & Physical ---
Date of Encounter: 05/19/17 Time of Encounter: 11:41 Assessment and Plan (1) 37 weeks gestation of Current visit: Yes Status: Acute admitted for delivery Scheduled medical induction of labor (2) Nephrostomy status Current visit: Yes Status: Acute Patient to have CT after delivered (3) Pyelonephritis affecting in third trimester Current visit: No Status: Acute Patient was on 2 week course of antibiotics Will repeat urine culture History of Present Illness Chief complaint: Scheduled Medical Induction of labor at 37w0d per [facility] recommendation HPI: Ms. Gant is a 32 year old female at 37w0d presents to labor and delivery for scheduled medical induction of labor. Dr. Acosta discussed patient with Dr. Leary who recommended delivery at 37w0d for pyelonephritis, nephrostomy tube and risk of morbidity. Patient reports +FM and reports occasional contractions. Patient denies LOF or VB. Blood type:A+ Rubella: Immune Hep B:Nonreactive GBS: negative Past Med Surg Social Fam HX - Past Medical History Source: patient Medical history: kidney stones, migraine, other Psychiatric history: no psych history - Past Surgical History Surgical History: ureteral stent, other - Social History Smoking Status: Never smoker Smokeless Tobacco Status: No Alcohol use: none Drug use: none - Family History Mother Adopted: No Living Status: Still Living Hx Family Cardiac Disorders: No Hx Family Respiratory Disorders: No Hx Family Cancer: No Hx Family GI Disorders: No Hx Family Endocrine Disorder: Yes (Graves disease) Hx Family Neuromuscular Disorders: No Hx Family Neurologic Disorders: No Hx Family HEENT Disorders: No Hx Family Autoimmune Disorders: No Obstetrical History - Pregnancies : 5 Para: 2 Term: 1 : 1 Ab's: 2 Livin Medications and Allergies Levofloxacin [Levaquin] 750 mg PO DAILY #14 tablet 05/07/17 [Rx] Oxycodone HCl 10 mg PO Q6HR PRN 6 Days #48 tablet 05/07/17 [Rx] Vitamins 1 tab PO DAILY 05/19/17 [History] Unisom 1 tab PO HS 05/19/17 [History] Vitamin B-6 1 tab PO HS 05/19/17 [History] 3 Allergy/AdvReac Type Severity Reaction Status Date / Time morphine Allergy Rash Verified 05/03/17 12:41 Review of System OB - Constitutional Constitutional ROS IM: no chills, no fever(s), no headache(s) - Cardiovascular Cardiovascular: no chest pain, no palpitations, no syncope - Respiratory Respiratory: no cough - Gastrointestinal Gastrointestinal: no diarrhea, no heartburn, no nausea, no vomiting - Genitourinary Genitourinary: no abnormal vaginal bleeding, no dysuria, no flank pain, no urinary frequency, no urinary incontinence, no urinary urgency Exam - Constitutional Constitutional: well developed, well nourished, no acute distress, average body habitus - HEENT HEENT: Normocephaly, Mucus Membranes Moist - Neck Neck exam: full ROM, supple - Lungs Respiratory exam: CTAB - Cardiovascular Cardiovascular exam: RRR, +S1, +S2 - Abdomen Abdomen: Present: bowel sounds normal, gravid, non tender - Extremities Extremities exam: full ROM, normal capillary refill, normal inspection Deep Tendon Reflex Grade: 2+ Normal - Uterus Uterus exam: Present: normal size, normal contour - Anus/Rectum Anus/Rectum: Present: normal perianal skin - Comments Comments: Nephrostomy tube on right side FHR 140 bpm moderate variability +15x15 accels no decels noted. Contractions 2- 3 min apart Cat. 1 tracing Results Result Diagrams: 05/19/17 08:58 05/19/17 08:58 Abnormal lab results RBC 3.63 M/mcL (3.82-4.97) L 05/19/17 08:58 Hgb 9.8 g/dL (11.5-15.4) L 05/19/17 08:58 Hct 31.4 % (35.3-44.9) L 05/19/17 08:58 MCH 27.0 pg (28.0-33.3) L 05/19/17 08:58 MCHC 31.2 g/dL (31.6-35.5) L 05/19/17 08:58 RDW 14.6 % (11.5-14.5) H 05/19/17 08:58 Sodium 133 mEq/L (136-145) L 05/19/17 08:58 Carbon Dioxide 21 mEq/L (23-29) L 05/19/17 08:58 Calculated Osmolality 274 (280-300) L 05/19/17 08:58 All other labs normal. - VTE Reasons for not Prescribing Prophylaxis: Treatment not Indicated - Low risk for VTE
--- NOTE | 2017-05-19 12:12 | OB Labor Progress Note ---
Date of Encounter: 05/19/17 Time of Encounter: 12:10 Labor Progress Note - Subjective Subjective: patient resting, comfortable with epidural in place. Discussed POC with patient. Patient denies any questions or concerns. - Cervix Cervix: 5/90/-1 - Heart Tones Heart Tones: 145 bpm moderate amount of variability +15x15 accels no decels noted. Cat. 1 tracing - [place]: 3-4 min apart - Interventions Interventions: SVE, AROM. Moderate amount of clear fluid. IUPC placed without difficulty. Patient tolerated well. - Plan Plan: Continue labor management. anticipate
[2017-05-19] MEDS ORDERED: Acetaminophen 325 MG TABLET PO PRN ×2 (12:37→19:55)
--- NOTE | 2017-05-19 13:33 | Anesthesia Progress Note ---
Date of Encounter: 05/19/17 Time of Encounter: 13:24 Anesthesia Note - Note Note: 05/19/17 13:31 c/o some pain left lower quad with contractions (hot spot). bolus after neg aspirations with 7ml of 0.5% rop. VSS, RN'S via FHRs stable.
[2017-05-19] MEDS ORDERED: *HR* FentaNYL (PF) 100 MCG/2 ML VIAL ONE (14:12)
[2017-05-19] MEDS ORDERED: *HR* Ropivacaine/PF 0.5% 20 ML VIAL EP ONE (14:45)
--- NOTE | 2017-05-19 16:27 | Anesthesia Progress Note ---
Date of Encounter: 05/19/17 Time of Encounter: 13:46 Anesthesia Note - Note Note: 05/19/17 16:19 (late entry at 1346 bolus with 100mcg of fent., pt level T4 bilateral, motor block to legs,at that time) Recent follow up at 1607, still minor discomfort noted offered another bolus and /or catheter pull back 1 cm and/or place another epidural (advised against) if pain is not tolerable. now states discomfort different location..in back, but denies wanting any further interventions. advised to call anesthesia with any questions or increasing discomfort. will follow.
--- NOTE | 2017-05-19 17:29 | OB/GYN Procedure Note ---
Delivery - Delivery Date: 05/19/17 Provider: Ivonne Baldwin Intrapartum events: none Delivery induction: AROM, oxytocin Delivery monitor: external FHT, external uterine Anesthesia: epidural Estimated Blood Loss: 100 - (s) A Delivery Date: 05/19/17 Delivery Time: 16:53 Presentation: vertex Position: SHIRLEY Route of delivery: Gender: Female Viability: Viable Pounds: 6 Ounces: 11 Weight Gram: 3030 kg at 1 minute: 7 at 5 mins: 8 Shoulder Dystocia: not encountered Specimens collected: cord blood Cord: 3 umbilical vessels - Repair Episiotomy: none Laceration Description: Perineal - 1st Degree (repaired with 3-0 vicryl) - Complications Delivery complications: none - Disposition Mom disposition: stable in LDR disposition: stable in LDR - Comments Comments: Called to LDR patient complete +2 station. Patient placed in stirrups and prepped for vaginal delivery. Under maternal effort patient spontaneously delivered a viable female infant. No nuchal, no meconium or shoulder dystocia was encountered. Infant placed on maternal abdomen. Cord was clamped and cut after pulsation ceased. Cord blood collected. A 1st degree perineal laceration was noted and repaired with 3-0 vicryl. Placenta delivered spontaneously and intact. FF, pericare provided. 100cc EBL. All counts correct. Both mother and infant stable for 2 hour recovery.
[2017-05-19] MEDS ORDERED: Benzocaine/Menthol 56 GM AEROSOL SPRAY TP PRN (19:55)
[2017-05-19] MEDS ORDERED: Measles/Mumps/Rubella Vacc 0.5 ML VIAL SQ PRN (19:55)
[2017-05-19] MEDS: levoFLOXacin 750 MG TABLET PO SCH (22:24)
[2017-05-20] MEDS: Ibuprofen 600 MG TABLET PO PRN ×4 (00:37→20:22)
[2017-05-20] MEDS: Prenatal Vit/FA 1 EACH TABLET PO SCH (08:15)
[2017-05-20] MEDS: *HR* OxyCODONE/APAP 5/325 TABLET PO PRN ×3 (09:21→23:34)
--- NOTE | 2017-05-20 10:14 | Discharge Summary ---
Date of Encounter: 05/20/17 Time of Encounter: 10:12 - Discharge Diagnosis (1) Spontaneous vaginal delivery Priority: Primary Status: Acute Comments: Continue routine care Meeting day 1 milestones Anticipate discharge today after consult with urology (2) Perineal laceration complicating delivery Priority: Secondary Status: Acute Comments: Repaired after delivery. Use ice packs and motrin prn. (3) UTI (urinary tract infection) Priority: Secondary Status: Acute Comments: Continue Levaquin as prescribed Consult urology for follow up and discharge care Qualifiers: Urinary tract infection type: acute pyelonephritis Qualified Code(s): N10 - Acute pyelonephritis (4) Nephrostomy status Priority: Secondary Status: Acute Comments: Consult urology for possible removal prior to discharge. Patient had nephrostomy tube placed at [facility] but would prefer to have it removed here to save the drive. - Discharge Medications Prescriptions: Ibuprofen [Motrin] 600 mg PO Q6HR PRN #60 tablet PRN Reason: Cramping Docusate [Colace] 100 mg PO BID #60 capsule Ferrous Sulfate 325 mg PO DAILY #30 tablet Home Medications: Levofloxacin [Levaquin] 750 mg PO DAILY #14 tablet 05/07/17 [Rx] Oxycodone HCl 10 mg PO Q6HR PRN 6 Days #48 tablet 05/07/17 [Rx] Vitamins 1 tab PO DAILY 05/19/17 [History] Acetaminophen [Tylenol] 650 mg PO Q6HR PRN tablet 05/20/17 [Rx] Benzocaine/Menthol [place] [Dermoplast [place]] 1 appl TP QID PRN aerosol 05/20/17 [Rx] Docusate [Colace] 100 mg PO BID #60 capsule 05/20/17 [Rx] Ferrous Sulfate 325 mg PO DAILY #30 tablet 05/20/17 [Rx] Ibuprofen [Motrin] 600 mg PO Q6HR PRN #60 tablet 05/20/17 [Rx] Allergies/Adverse Reactions: 3 Allergy/AdvReac Type Severity Reaction Status Date / Time morphine Allergy Rash Verified 05/03/17 12:41 Data Procedures and tests throughout hospitalization: Laboratory Tests 05/19/17 05/19/17 05/19/17 08:58 08:58 08:58 WBC 8.0 RBC 3.63 L Hgb 9.8 L Hct 31.4 L MCV 86.5 MCH 27.0 L MCHC 31.2 L RDW 14.6 H Plt Count 312 MPV 11.5 Immature Gran % 0.6 Seg Neutrophils % 65.9 Lymphocytes % 24.4 Monocytes % 7.6 Eosinophils % 1.1 Basophils % 0.4 Neutrophils # 5.3 Lymphocytes # 2.0 Monocytes # 0.6 Eosinophils # 0.1 Basophils # 0.0 Sodium 133 L Potassium 3.9 Chloride 104 Carbon Dioxide 21 L BUN 11 Creatinine 0.64 Est GFR ( Amer) > 60 Est GFR (Non-Af Amer) > 60 BUN/Creatinine Ratio 17 Glucose 82 Calculated Osmolality 274 L Calcium 8.9 Urine Opiates Screen Negative Ur Barbiturates Screen Negative Ur Phencyclidine Scrn Negative Ur Amphetamines Screen Negative U Benzodiazepines Scrn Negative Urine Cocaine Screen Negative U Marijuana (THC) Screen Negative Date of admission: 05/19/17 08:22 Primary care physician: Liz Dickey MD Discharging clinician: Marychuy Mcgraw Anticipated date of discharge: 05/20/17 - Patient Status Disposition: Home, Self-Care Condition: Good Functional capacity at discharge: independent ambulation Overall status at discharge: patient is progressing back to baseline - Discharge Instructions Follow Up With: Liz Dickey MD [Primary Care Provider] - Laurence Acosta DO [Partnered Physician] - - Diet and Activity Activity: resume usual activities as tolerated Diet: regular diet Hospital Course Reason for admission: other (IOL at 37 weeks as recommended by [facility] d/t concern for sepsis) Delivery: Episiotomy: none Laceration: 1st degree (repaired) Other procedures: none complications: UTI Discharge diagnosis: delivery (37 week delivery as recommended by [facility]) [place] baby: female Hospital course: Delivery Date: 05/19/17 Provider: Ivonne Baldwin Intrapartum events: none Delivery induction: AROM, oxytocin Delivery monitor: external FHT, external uterine Anesthesia: epidural Estimated Blood Loss: 100 - (s) Infant A Infant Delivery Date: 05/19/17 Delivery Time: 16:53 Presentation: vertex Position: SHIRLEY Route of delivery: Gender: Female Viability: Viable Pounds: 6 Ounces: 11 Weight Gram: 3030 kg at 1 minute: 7 at 5 mins: 8 Shoulder Dystocia: not encountered Specimens collected: cord blood Cord: 3 umbilical vessels - Repair Episiotomy: none Laceration Description: Perineal - 1st Degree (repaired with 3-0 vicryl) - Complications Delivery complications: none - Disposition Mom disposition: stable in LDR [place] disposition: stable in LDR - Comments Comments: Called to LDR patient complete +2 station. Patient placed in stirrups and prepped for vaginal delivery. Under maternal effort patient spontaneously delivered a viable female . No nuchal, no meconium or shoulder dystocia was encountered. Infant placed on maternal abdomen. Cord was clamped and cut after pulsation ceased. Cord blood collected. A 1st degree perineal laceration was noted and repaired with 3-0 vicryl. Placenta delivered spontaneously and intact. FF, pericare provided. 100cc EBL. All counts correct. Both mother and infant stable for 2 hour recovery. Time Attestation: Total time spent providing and/or coordinating discharge services: Time Spent: Less than 30 minutes Exam - Constitutional Vitals: Temp Pulse Resp BP Pulse Ox 97.9 F 80 16 103/70 95 05/20/17 04:04 05/20/17 04:04 05/20/17 04:04 05/20/17 04:04 05/20/17 04:04 General appearance IM: A&O X 3, pleasant, no acute distress - Respiratory Respiratory exam: Present: CTAB - Cardiovascular Cardiovascular exam IM: Present: RRR, +S1, +S2 - GI/Abdominal GI/Abdominal exam IM: normal bowel sounds, soft - Rectal Rectal exam: deferred - External exam: normal external exam (R nephrostomy tube in place) Uterine Tone: Firm Uterus Position: 2 Fingers Below Umbilicus - Extremities Exam Extremities exam IM: Present: full ROM, normal capillary refill, normal inspection - Neurological Exam Neurological exam: alert, normal gait, oriented X3, reflexes normal, strengths equal and symetr throughout
[2017-05-20] MEDS: levoFLOXacin 750 MG TABLET PO SCH (20:22)
[2017-05-20 21:18] VITALS: BP 114/73
[2017-05-21] MEDS: Ibuprofen 600 MG TABLET PO PRN ×2 (03:40→08:48)
--- NOTE | 2017-05-21 07:39 | Urology Progress Note ---
Date of Encounter: 05/21/17 Time of Encounter: 07:37 - Assessment and Plan (1) Nephrostomy status Current Visit: Yes Status: Acute Assessment and plan: I reviewed the CT scan and do not feel there is any further indication for the nephrostomy tube as there is no ureteral calculi and she recently delivered unsure if the hydronephrosis was secondary to or a ureteral stone which has since passed. I feel it is okay for the patient to follow with Dr. Padilla as she is established in 4-6 weeks. Need to discuss stone prevention. Patient does have a 2 mm contralateral renal stone. Progress Note Subjective: feels better Narrative: pt in hospital after delivery. right nephrostomy tube in place. Nephrostomy was placed at [facility] for significant hydronephrosis. Question if a stone was present. CT scan performed in last 24 hours does not show any stones or significant hydronephrosis in the right side. Objective Initial Vital Signs Temp Pulse Resp BP Pulse Ox 97.5 F L 66 16 119/67 99 05/19/17 19:50 05/19/17 19:50 05/19/17 19:50 05/19/17 19:50 05/19/17 19:50 - General physical appearance Present: no distress - Additional Exam Nephrostomy tube removed by M.Fernandez Urine clear. No skin erythema. - Labs 05/19/17 08:58 05/19/17 08:58 - VTE Reasons for not Prescribing Prophylaxis: Treatment not Indicated - Low risk for VTE Consult Discharge Plan - Plan Referrals: Laurence Acosta DO [Partnered Physician] - Liz Dickey MD [Primary Care Provider] - Prescriptions: Ibuprofen [Motrin] 600 mg PO Q6HR PRN #60 tablet PRN Reason: Cramping Docusate [Colace] 100 mg PO BID #60 capsule Ferrous Sulfate 325 mg PO DAILY #30 tablet
[2017-05-21] MEDS: Prenatal Vit/FA 1 EACH TABLET PO SCH (08:49)
== END 2017-05-21 10:10 | disposition home or self-care (01) | DRG 774 ==
LOC: 1NENULAB 08:22 → 1NENUOBS 19:54
PROVIDERS: ADMIT Advanced Practice Midwife; ATTEND Advanced Practice Midwife

== ENCOUNTER 2020-08-18 21:45 | Observation (INO) ==
[2020-08-18] MEDS ORDERED: 0.9 % Sodium Chloride 1,000 ML IV SCH (23:45)
[2020-08-18] MEDS ORDERED: Ondansetron 4 MG/2 ML VIAL IVP PRN (23:51)
[2020-08-19] MEDS ORDERED: Ondansetron 4 MG/2 ML VIAL IVP PRN ×2 (00:12→04:40)
[2020-08-19] MEDS ORDERED: Promethazine 6.25 MG in Water for inj. (sterile) 20 ML IVPB PRN (00:12)
[2020-08-19] MEDS ORDERED: *HR* OxyCODONE Immed Rel 5 MG TABLET PO PRN (00:12)
[2020-08-19] MEDS ORDERED: *HR* FentaNYL (PF) 100 MCG/2 ML VIAL ONE (00:15)
[2020-08-19] MEDS ORDERED: *HR* Propofol 200 MG/20 ML VIAL IVP ONE (00:15)
[2020-08-19] MEDS ORDERED: Ondansetron 4 MG/2 ML VIAL ONE (00:17)
[2020-08-19] MEDS ORDERED: *HR* Succinylcholine 200 MG/10 ML VIAL IVP ONE (00:17)
[2020-08-19] MEDS ORDERED: *HR* Rocuronium Bromide 50 MG/5 ML VIAL ONE (00:17)
[2020-08-19] MEDS ORDERED: Lidocaine -MPF 2% 2 ML VIAL ONE (00:17)
[2020-08-19] MEDS: *HR* HYDROmorphone PF 0.5 MG/0.5 ML SYRINGE IVP PRN ×4 (02:02→02:17)
[2020-08-19] MEDS ORDERED: Ringers Solution, Lactated 1,000 ML ONE ×2 (02:12→02:24)
[2020-08-19] MEDS ORDERED: Acetaminophen IV 1,000 MG/100 ML BAG IVPB ONE (02:24)
[2020-08-19] MEDS ORDERED: *HR* HYDROmorphone (PF) 1 MG/ML SYRINGE IVP ONE (02:36)
[2020-08-19] MEDS ORDERED: *HR* HYDROmorphone (PF) 1 MG/ML SYRINGE ONE (02:40)
[2020-08-19] MEDS ORDERED: 0.9 % Sodium Chloride 1,000 ML IV SCH (04:40)
[2020-08-19] MEDS: Ketorolac 15 MG/ML VIAL IVP SCH ×3 (04:55→17:34)
[2020-08-19] MEDS: Piperacillin/Tazobactam 3.375 GM in 0.9 % Sodium Chloride Mini Bag 100 ML IVPB SCH ×2 (08:03→15:38)
[2020-08-19] MEDS ORDERED: Acetaminophen IV 1,000 MG/100 ML BAG IVPB SCH (09:00)
[2020-08-19] MEDS ORDERED: Topiramate 25 MG TABLET PO SCH (09:00)
[2020-08-19] MEDS ORDERED: Gabapentin 300 MG CAPSULE PO SCH (11:00)
[2020-08-19] MEDS: Metoclopramide 10 MG/2 ML VIAL IVP SCH ×2 (11:34→17:34)
[2020-08-19] MEDS: *HR* OxyCODONE/APAP 5/325 TABLET PO PRN ×2 (12:05→15:54)
[2020-08-19 15:35] VITALS: BP 113/66
[2020-08-19] MEDS ORDERED: hydrOXYzine pamoate 25 MG CAPSULE PO SCH (21:00)
== END 2020-08-19 17:56 | disposition home or self-care (01) ==
LOC: 3BNU
PROVIDERS: ADMIT Surgery; ATTEND Surgery